=== PATIENT | male | born 1930 | race Caucasian/White ===

== ENCOUNTER 2016-08-18 19:01 | Emergency (ER) | payer OTHER ==
[2016-08-18] VITALS (10 sets, daily range): BP systolic 138–162; BP diastolic 80–99; PULSE 89–97; TEMP 36.9; O2SAT 93–97; Ht 180.3 cm; Wt 128.5 kg
[~2016-08-18] VITALS: Ht 180.3 cm; Wt 128.5 kg
[~2016-08-18 19:01] MED LIST: ASPI81TA28 PO; BENA20TA14 PO; COEN100C11 PO; FLAX100024 PO; IBUP-1050 PO; MULT-190 PO; OMEG10007 PO; RED600TA PO
[2016-08-18] MEDS ORDERED: ONDANSETRON INJ 2 MG/ML 2 ML VIAL IV STA (19:52)
[2016-08-18] MEDS ORDERED: HYDROmorphone INJ 0.5 MG/0.5 ML SYR IV STA (19:52)
[2016-08-18] MEDS ORDERED: SODIUM CHLORIDE 0.9% 500ML 500 ML IV STA (19:52)
[2016-08-18 20:01] LABS: BASO % 0.3 %; BASO ABS # 0.03 K/uL (0-0.2); COMPLETE YES; EOS % 1.9 %; HEMATOCRIT 47.9 % (42-52); IG% 0.3 %; LYMPH % 29.5 %; LYMPH ABS # 2.97 K/uL (1.2-3.4); MEAN CELL VOLUME 91.1 fL (80-100); MEAN PLATELET VOLUME 10.6 fL (7.4-10.4); MONO % 8.8 %; NEUT % 59.2 %; PLATELET COUNT 190 K/uL (130-400); RED BLOOD COUNT 5.26 M/uL (4.7-6.1); WHITE BLOOD COUNT 10.07 K/uL (4.8-10.8)
--- NOTE | 2016-08-18 20:04 | EMERGENCY ROOM VISIT NOTE ---
History Report prepared by Desmond: Malu Block Under the Supervision of: Dr. Richie Dixon M.D. 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 The patient rates the pain as a 9/10 in severity. 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 The patient states he is unable to move his right leg due to the pain. The patient's states that the patient was hospitalized due to pneumonia and sepsis infection 4 months ago. The patient denies any shortness of breath or recent fevers. Source of History: patient, spouse/significant other () Onset: shortly GENERAL COUNSELOR Position: pelvis (right hip) Symptom Intensity: 9/10 Timing: constant Modifying Factors (Worsening): movement Associated Symptoms: No SOB, No fevers Review of Systems See HPI for pertinent positives & negatives. A total of 10 systems reviewed and were otherwise negative. Past Medical & Surgical Medical Problems: (1) Hyperlipidemia Nec/Nos (2) Hypertension (3) Pure Hypercholesterolem Family History Stroke Social History Smoking Status: Never Smoker Marital Status: Housing Status: lives with significant other Current/Historical Medications Scheduled Aspirin (Aspirin Ec), 81 MG PO DAILY Flaxseed (Linseed) (Flax Seed Oil), 1 DOSE PO BID Furosemide (Lasix), 20 MG PO DAILY Metoprolol Tartrate (Lopressor), 50 MG PO BID Ocuvite Preservision (Ocuvite Preservision), 1 TAB PO BID Red Yeast Rice Extract (Red Yeast Rice), 1 DOSE PO BID Rivaroxaban (Xarelto), 15 MG PO QAM Allergies Coded Allergies: No Known Allergies (Verified , 08/18/16) Physical Exam Vital Signs Date Time Temp Pulse Resp B/P Pulse Ox O2 Delivery O2 Flow Rate FiO2 08/18/16 22:35 97 22 151/92 94 08/18/16 22:15 93 20 149/87 92 Room Air 08/18/16 22:10 93 20 138/82 93 Room Air 08/18/16 21:55 95 18 140/82 94 Nasal Cannula 2.0 08/18/16 21:40 96 16 146/84 97 Nasal Cannula 2.0 08/18/16 21:35 94 16 154/85 96 Nasal Cannula 2.0 08/18/16 21:30 95 16 154/95 94 Nasal Cannula 2.0 08/18/16 21:25 94 32 140/80 93 Nasal Cannula 5.0 08/18/16 21:21 96 20 162/99 95 Nasal Cannula 2.0 08/18/16 21:08 89 20 138/91 97 Nasal Cannula 2.0 08/18/16 20:53 87 08/18/16 20:50 88 18 147/89 96 Room Air 08/18/16 20:05 88 18 194/121 96 Room Air 08/18/16 19:10 36.9 91 18 178/102 95 Room Air Physical Exam GENERAL: Patient is a healthy-appearing well-nourished, in obvious distress. HEAD: Normocephalic atraumatic EYES: Ocular movements intact pupils equal and react to light OROPHARYNX mucous membranes are moist no exudates present no erythema or edema present NECK: Supple no nuchal rigidity CHEST: Good equal expansion LUNGS: Clear and equal to auscultation CARDIAC: Normal S1 and S2 ABDOMEN: Soft nontender no guarding BACK: No CVA tenderness EXTREMITIES: No pain upon palpation normal muscle strength in all groups no clubbing cyanosis or edema; Right leg is shortened and externally rotated. NEURO: Patient is following commands is answering questions appropriately. Alert and oriented x3 Cranial Nerves 2-12 grossly intact Medical Decision & Procedures ER Provider Diagnostic Interpretation: X-ray results as stated below per interpretation by me and the radiologist: CHEST ONE VIEW PORTABLE HISTORY: Fall. COMPARISON: Chest 12/29/2014. FINDINGS: The heart remains mildly enlarged. There is diffuse interstitial thickening which is likely chronic. No new focal lung consolidations to suggest pneumonia. No evidence for pulmonary edema. Low lung volumes, unchanged. No pleural effusions. No pneumothorax. IMPRESSION: No significant change compared to the prior study. No acute process. Electronically signed by: José Luis Lynch M.D. 08/18/2016 8:46 PM Dictated Date/Time: 08/18/2016 8:45 PM PELVIS 1 OR 2 VIEW ROUTINE, RIGHT FEMUR 2 VIEWS ROUTINE CLINICAL HISTORY: Fall. Right hip pain. COMPARISON STUDY: Right hip 11/12/2015. 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 No fractures within the pelvis, hips, or right femur. There is posterior/superior dislocation of the right femoral prosthesis in relation to the acetabular cup. Moderate left hip osteoarthritis. IMPRESSION: Posterior/superior dislocation of the right femoral prosthesis in relation to the acetabular cup. No fractures. Electronically signed by: José Luis Lynch M.D. 08/18/2016 8:49 PM Dictated Date/Time: 08/18/2016 8:47 PM PELVIS 1 OR 2 VIEW ROUTINE, RIGHT FEMUR 2 VIEWS ROUTINE CLINICAL HISTORY: Fall. Right hip pain. COMPARISON STUDY: Right hip 11/12/2015. 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 No fractures within the pelvis, hips, or right femur. There is posterior/superior dislocation of the right femoral prosthesis in relation to the acetabular cup. Moderate left hip osteoarthritis. IMPRESSION: Posterior/superior dislocation of the right femoral prosthesis in relation to the acetabular cup. No fractures. Electronically signed by: José Luis Lynch M.D. 08/18/2016 8:49 PM Dictated Date/Time: 08/18/2016 8:47 PM Laboratory Results 08/18/16 19:40 Red Blood Count 5.26, Mean Corpuscular Volume 91.1, Mean Corpuscular Hemoglobin 31.0, Mean Corpuscular Hemoglobin Concent 34.0, Mean Platelet Volume 10.6, Neutrophils (%) (Auto) 59.2, Lymphocytes (%) (Auto) 29.5, Monocytes (%) (Auto) 8.8, Eosinophils (%) (Auto) 1.9, Basophils (%) (Auto) 0.3, Neutrophils # (Auto) 5.96, Lymphocytes # (Auto) 2.97, Monocytes # (Auto) 0.89, Eosinophils # (Auto) 0.19, Basophils # (Auto) 0.03 08/18/16 19:40 Test 08/18/16 19:40 08/18/16 20:48 White Blood Count 10.07 K/uL (4.8-10.8) Red Blood Count 5.26 M/uL (4.7-6.1) Hemoglobin 16.3 g/dL (14.0-18.0) Hematocrit 47.9 % (42-52) Mean Corpuscular Volume 91.1 fL (80-100) Mean Corpuscular Hemoglobin 31.0 pg (25-34) Mean Corpuscular Hemoglobin Concent 34.0 g/dl (32-36) Platelet Count 190 K/uL (130-400) Mean Platelet Volume 10.6 fL (7.4-10.4) Neutrophils (%) (Auto) 59.2 % Lymphocytes (%) (Auto) 29.5 % Monocytes (%) (Auto) 8.8 % Eosinophils (%) (Auto) 1.9 % Basophils (%) (Auto) 0.3 % Neutrophils # (Auto) 5.96 K/uL (1.4-6.5) Lymphocytes # (Auto) 2.97 K/uL (1.2-3.4) Monocytes # (Auto) 0.89 K/uL (0.11-0.59) Eosinophils # (Auto) 0.19 K/uL (0-0.5) Basophils # (Auto) 0.03 K/uL (0-0.2) RDW Standard Deviation 46.6 fL (36.4-46.3) RDW Coefficient of Variation 13.9 % (11.5-14.5) Immature Granulocyte % (Auto) 0.3 % Immature Granulocyte # (Auto) 0.03 K/uL (0.00-0.02) Anion Gap 9.0 mmol/L (3-11) Est Creatinine Clear Calc Drug Dose 50.8 ml/min Estimated GFR () 52.0 Estimated GFR (Non- 44.9 BUN/Creatinine Ratio 13.1 (10-20) Calcium Level 8.8 mg/dl (8.5-10.1) Total Bilirubin 0.4 mg/dl (0.2-1) Direct Bilirubin mg/dl (0-0.2) Aspartate Amino Transf (AST/SGOT) 26 U/L (15-37) Alanine Aminotransferase (ALT/SGPT) 25 U/L (12-78) Alkaline Phosphatase 136 U/L (45-117) Total Protein 7.8 gm/dl (6.4-8.2) Albumin 3.8 gm/dl (3.4-5.0) Lipase 112 U/L (73-393) Chemistry Specimen Hemolysis Urine Color YELLOW Urine Appearance CLEAR (CLEAR) Urine pH 5.0 (4.5-7.5) Urine Specific [place] 1.021 (1.000-1.030) Urine Protein TRACE (NEG) Urine Glucose (UA) NEG (NEG) Urine Ketones NEG (NEG) Urine Occult Blood NEG (NEG) Urine Nitrite NEG (NEG) Urine Bilirubin NEG (NEG) Urine Urobilinogen NEG (NEG) Urine Leukocyte Esterase NEG (NEG) Urine WBC (Auto) 1-5 /hpf (0-5) Urine RBC (Auto) 0-4 /hpf (0-4) Urine Hyaline Casts (Auto) 1-5 /lpf (0-5) Urine Epithelial Cells (Auto) 10-20 /lpf (0-5) Urine Bacteria (Auto) NEG (NEG) Labs reviewed by ED physician. Medications Administered Medications (Trade) Dose Ordered Sig/Ml Route Start Time Stop Time Status Last Admin Dose Admin Hydromorphone HCl (Dilaudid Inj) 0.5 mg NOW STAT IV 08/18/16 19:52 08/18/16 19:54 DC 08/18/16 20:04 0.5 MG Ondansetron HCl 4 mg 4 mg NOW STAT IV 08/18/16 19:52 08/18/16 19:54 DC 08/18/16 20:04 4 MG Sodium Chloride (Nss 500ml) 500 ml @ 999 mls/hr Q31M STAT IV 08/18/16 19:52 08/18/16 20:22 DC 08/18/16 20:03 999 MLS/HR Metoclopramide HCl (Reglan Inj) 10 mg NOW STAT IV 08/18/16 20:54 08/18/16 20:56 DC 08/18/16 21:04 10 MG Procedure Procedural Sedation Indication Hip Dislocation. Total time: 20 minutes minutes. Written consent was obtained after the risks and benefits were explained to the patient, including, but not limited to aspiration, allergic reaction, breathing difficulties, cardiac complications, vomiting, pain, event recall, bleeding, and /or infection. Pre-sedation examination and paperwork completed. The patient was on 100% oxygen via NRB prior to the procedure. Continous end tidal CO2 monitoring, pulse oximetry, and cardiac monitoring were utilized. Suction, airway equipment, medications, respiratory equipment, and appropriate personnel were prepared prior to the initiation of the procedure. A time out was taken. Sedation was achieved utilizing 70 mg of propofol. After I observed the patient had reached the appropriate level of sedation the main procedure was performed without complication. Sedation was discontinued and the monitoring continued. The patient recovered quickly from the effects of the medication without complication or adverse event. ED Course 1945: Past medical records reviewed. The patient was evaluated in room C4. A complete history and physical examination was performed. 1951: Ordered Sodium Chloride 500 ml @ 999 mls/hr IV, Zofran Inj 4 mg IV, Dilaudid Inj 0.5 mg IV. 2049: I discussed the case with Dr. Shaw Orthopedic Surgery. He agreed to come evaluate the patient and reduce the hip dislocation. 2053: Ordered Reglan Inj 10 mg IV, Propofol 60 mg IV, Ketamine HCl 60 mg IV. 2129: Upon reexamination the patient is resting comfortably. I discussed results and treatment plan with the patient. He verbalizes agreement and understanding. The patient is ready for discharge. Medical Decision Differential diagnosis: Etiologies such as fracture, dislocation, neurovascular compromise, compartment syndrome, soft tissue injury, as well as others were entertained. This is an 86-year-old male who presents emergency department complaining of right hip dislocation. The patient's is also concerned that he is had pneumonia in the past. I will note that the patient does not have any complaint of weakness chest pain cough or congestion. Chest x-ray does not show any evidence of pneumonia. His hip x-ray is concerning for a right hip dislocation. The patient's is requesting to speak with [facility] therefore . education administrative assistant Dr. Shaw came in to see the . The patient was sedated as above. He received 0.5 mg of Dilaudid in the emergency department. The hip was successfully reduced by Dr. Shaw. Repeat examination revealed much improvement patient's symptoms. I do believe that the patient is well enough to be discharged home for follow-up with [facility]. Patient was in agreement with the treatment plan. Consults Time Called: 2044 Consulting Physician: Dr. [facility] Surgery Returned Call: 2049 I discussed the case with Dr. Shaw Orthopedic Surgery. He agreed to come evaluate the patient and reduce the hip dislocation. Impression Primary Impression: Dislocation of internal right hip prosthesis Scribe Attestation The scribe's documentation has been prepared under my direction and personally reviewed by me in its entirety. I confirm that the note above accurately reflects all work, treatment, procedures, and medical decision making performed by me. Departure Information Dispostion Home / Self-Care Referrals Helio Molina M.D. (PCP) Forms HOME CARE DOCUMENTATION FORM, IMPORTANT VISIT INFORMATION, WORK / SCHOOL INSTRUCTIONS Patient Instructions My [facility] Additional Instructions Follow up with DR Pike's office You have been examined and treated today on an emergency basis only. This is not a substitute for, or an effort to provide, complete comprehensive medical care. It is impossible to recognize and treat all injuries or illnesses in a single emergency department visit. It is therefore important that you follow up closely with Dr Molina. Call as soon as possible for an appointment. Thank you for your time and consideration. I look forward to speaking with you again soon. Please don't hesitate to call us if you have any questions. Problem Qualifiers Primary Impression: Dislocation of internal right hip prosthesis Encounter type: initial encounter Qualified Codes: T84.020A - Dislocation of internal right hip prosthesis, initial encounter
[2016-08-18] MEDS ORDERED: FLAX1CAP11 PO (20:20)
[2016-08-18] MEDS ORDERED: ASPI81TA28 PO (20:20)
[2016-08-18] MEDS ORDERED: XRL15 PO (20:20)
[2016-08-18] MEDS ORDERED: MULT-190 PO (20:20)
[2016-08-18] MEDS ORDERED: METO-551 PO (20:20)
[2016-08-18] MEDS ORDERED: FURO-85 PO (20:20)
[2016-08-18] MEDS ORDERED: RED600TA PO (20:20)
--- NOTE | 2016-08-18 20:48 | DIAGNOSTIC IMAGING REPORT ---
CHEST ONE VIEW PORTABLE HISTORY: Fall. COMPARISON: Chest 12/29/2014. FINDINGS: The heart remains mildly enlarged. There is diffuse interstitial thickening which is likely chronic. No new focal lung consolidations to suggest pneumonia. No evidence for pulmonary edema. Low lung volumes, unchanged. No pleural effusions. No pneumothorax. IMPRESSION: No significant change compared to the prior study. No acute process. Electronically signed by: José Luis Lynch M.D. 08/18/2016 8:46 PM Dictated Date/Time: 08/18/2016 8:45 PM
[2016-08-18 20:50] LABS: ALKALINE PHOSPHATASE 136 U/L (45-117); ALT/SGPT 25 U/L (12-78); AST/SGOT 26 U/L (15-37); BLOOD UREA NITROGEN 18 mg/dl (7-18); BUN/CREATININE RATIO 13.1 (10-20); CALCIUM 8.8 mg/dl (8.5-10.1); CARBON DIOXIDE 30 mmol/L (21-32); CHLORIDE 105 mmol/L (98-107); GLUCOSE 110 mg/dl (70-99); POTASSIUM 3.9 mmol/L (3.5-5.1); SODIUM 144 mmol/L (136-145)
--- NOTE | 2016-08-18 20:52 | DIAGNOSTIC IMAGING REPORT ---
PELVIS 1 OR 2 VIEW ROUTINE, RIGHT FEMUR 2 VIEWS ROUTINE CLINICAL HISTORY: Fall. Right hip pain. COMPARISON STUDY: Right hip 11/12/2015. 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 No fractures within the pelvis, hips, or right femur. There is posterior/superior dislocation of the right femoral prosthesis in relation to the acetabular cup. Moderate left hip osteoarthritis. IMPRESSION: Posterior/superior dislocation of the right femoral prosthesis in relation to the acetabular cup. No fractures. Electronically signed by: José Luis Lynch M.D. 08/18/2016 8:49 PM Dictated Date/Time: 08/18/2016 8:47 PM
[2016-08-18] MEDS ORDERED: KETAMINE HCL INJ 50 MG/ML 10 ML VIAL IV STA (20:54)
[2016-08-18] MEDS ORDERED: METOCLOPRAMIDE HCL INJ 5 MG/ML 2 ML VIAL IV STA (20:54)
[2016-08-18] MEDS ORDERED: PROPOFOL IV EMULSION 10 MG/ML 20 ML VIAL IV STA (20:54)
[2016-08-18 21:15] LABS: URINE APPEARANCE CLEAR (CLEAR); URINE BILIRUBIN NEG (NEG); URINE COLOR YELLOW; URINE NITRITE NEG (NEG); URINE SPECIFIC GRAVITY 1.021 (1.000-1.030); UROBILINOGEN NEG (NEG)
[2016-08-18 21:16] LABS: MANUAL MICROSCOPIC REQUIRED? NO; REVIEW REQ? NO
--- NOTE | 2016-08-18 21:40 | EMERGENCY ROOM VISIT NOTE ---
Pre-Mod Sedation Assessment General Date of Moderate Sedation: Aug 18, 2016. Vital Signs: Vital Signs Past 12 Hours Date Time Temp Pulse Resp B/P Pulse Ox O2 Delivery O2 Flow Rate FiO2 08/18/16 21:21 96 20 162/99 95 Nasal Cannula 2.0 08/18/16 21:08 89 20 138/91 97 Nasal Cannula 2.0 08/18/16 20:53 87 08/18/16 20:50 88 18 147/89 96 Room Air 08/18/16 20:05 88 18 194/121 96 Room Air 08/18/16 19:10 36.9 91 18 178/102 95 Room Air Review Cardiovascular: regular rate, rhythm, no edema, no gallop, no JVD, no murmur, normal peripheral pulses Abdomen: normal bowel sounds, non tender, soft, no organomegaly, no pulsatile mass, normal rectal exam, occult blood negative Lungs: chest non-tender, lungs clear, normal breath sounds, no respiratory distress, no accessory muscle use Airway Class: II Pre-Sedation Airway Assessment Oral Cavity: Dental Abnormalities Short Thick Neck: Yes Hx of Sleep Apnea: No Smoking Status: Never Smoker Mallampati Classification: Class III ASA Classification: Class III Procedure Planning Contraindications-for Mod Sed: None Yes Notes The planned sedation has been discussed with the patient and consent obtained. I have identified the patient, determined the appropriateness of sedation and have assessed the patient immediately prior to the procedure. All medicine(s) and interventions are by my order.
--- NOTE | 2016-08-18 21:41 | EMERGENCY ROOM VISIT NOTE ---
Post-Moderate Sedation Plan General Date of Moderate Sedation Aug 18, 2016. Vital Signs: Vital Signs Past 12 Hours Date Time Temp Pulse Resp B/P Pulse Ox O2 Delivery O2 Flow Rate FiO2 08/18/16 21:21 96 20 162/99 95 Nasal Cannula 2.0 08/18/16 21:08 89 20 138/91 97 Nasal Cannula 2.0 08/18/16 20:53 87 08/18/16 20:50 88 18 147/89 96 Room Air 08/18/16 20:05 88 18 194/121 96 Room Air 08/18/16 19:10 36.9 91 18 178/102 95 Room Air Review - Discharge Plan Post Moderate Sedation Plan: On clinical assessment, the patient appears to have tolerated the conscious sedation without complications. Patient is recovering as anticipated. Patient will continue to be monitored by nursing and may be discharged when conscious sedation discharge criteria are met.
--- NOTE | 2016-08-18 21:50 | DIAGNOSTIC IMAGING REPORT ---
PELVIS/UNILATERAL HIP 1 VIEW CLINICAL HISTORY: Pt c/o RT hip pain. Dislocation. Status post reduction. COMPARISON STUDY: Right femur 08/18/2016. FINDINGS: Anatomic alignment status post closed reduction of the right hip prosthesis. No acute fractures identified. Moderate left hip osteoarthritis. 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 IMPRESSION: Anatomic alignment status post reduction of the right hip prosthesis dislocation. Electronically signed by: José Luis Lynch M.D. 08/18/2016 9:47 PM Dictated Date/Time: 08/18/2016 9:46 PM
--- NOTE | 2016-08-19 01:46 | ORTHOPEDIC CONSULTATION ---
DATE OF CONSULTATION: 08/18/2016 EMERGENCY DEPARTMENT CONSULTATION Special attention to right hip dislocation. HISTORY OF PRESENT ILLNESS: This is an 86-year-old male who is status post right total hip, initially done in the [place] area. Subsequently, he had revision hip replacement by Dr. Pike. He has had 2 subsequent dislocations in the past few years to the right hip. He presents with dislocation of the right hip. He states this began as he was bending over, picking something up off the floor. He complains of pain in the right hip region. He denies any other complaints, injury or numbness. PHYSICAL EXAMINATION: RIGHT HIP: Exam shows shortened and externally rotated hip. He has pain with logroll of the hip. His calf and thigh compartments are soft. He can flex and extend the ankle and the digits, but further musculoskeletal exam is limited secondary to discomfort. RADIOGRAPHS: AP pelvis does show posterior superior dislocation of the hip. I do not see evidence of acute fracture. ASSESSMENT: An 86-year-old male, with right hip dislocation, third dislocation. PLAN: I discussed treatment with the patient and family. The recommendations were closed reduction in the Emergency Department followed by a followup with Dr. Pike. The patient's family is anxious to discuss revision surgery as this has been his third dislocation. PROCEDURE: The patient was given conscious sedation by the department of emergency medicine. I performed a gentle closed reduction maneuver, the hip did go into place easily without significant difficulty. Leg lengths were equal after the procedure. Post-reduction radiographs confirmed a concentric reduction. The patient was placed in a knee immobilizer and instructed to follow up in the office.
== END 2016-08-18 22:36 | disposition home or self-care (01) ==
LOC: EDBD 19:01 → C.EDC 19:03
DX: T84.020A Dislocation of internal right hip prosthesis, initial encounter (principal); Y83.1 Surgical operation with implant of artificial internal device as the cause of abnormal reaction of the patient, or of later complication, without mention of misadventure at the time of the procedure; Z87.01 Personal history of pneumonia (recurrent); E78.5 Hyperlipidemia, unspecified; I10 Essential (primary) hypertension; E78.00 Pure hypercholesterolemia, unspecified; Z82.3 Family history of stroke; Z79.82 Long term (current) use of aspirin; Z79.899 Other long term (current) drug therapy; Z79.01 Long term (current) use of anticoagulants

== ENCOUNTER 2017-12-29 10:40 | Inpatient (IN) | payer OTHER ==
[~2017-12-29] VITALS: Ht 180.3 cm; Wt 101.5 kg
[~2017-12-29 10:40] MED LIST changes: -BENA20TA14 PO; -COEN100C11 PO; -FLAX100024 PO; +FLAX1CAP11 PO; +FURO-85 PO; -IBUP-1050 PO; +METO-551 PO; -OMEG10007 PO; +XRL15 PO
[2017-12-29] MEDS ORDERED: SODIUM CHLORIDE 0.9% 1000ML 500 ML IV STA (11:15)
[2017-12-29] MEDS ORDERED: MISCCAP80 PO (11:27)
[2017-12-29] MEDS ORDERED: XRL20 PO (11:27)
[2017-12-29] MEDS ORDERED: ZLF/50 PO (11:27)
[2017-12-29] MEDS ORDERED: SENN-65 PO (11:27)
[2017-12-29] MEDS ORDERED: PLV75 PO (11:27)
[2017-12-29] MEDS ORDERED: DOCU-94 PO (11:28)
[2017-12-29] MEDS ORDERED: ROSU20TA24 PO (11:28)
[2017-12-29] MEDS ORDERED: METO50TA16 PO (11:28)
[2017-12-29] MEDS ORDERED: PANT40TA PO (11:28)
[2017-12-29] MEDS ORDERED: OMEG10007 PO (11:28)
[2017-12-29] MEDS ORDERED: NTRGSL/4 UT (11:28)
[2017-12-29] MEDS ORDERED: LSX20 PO (11:28)
[2017-12-29] MEDS ORDERED: POLY335019 PO (11:28)
[2017-12-29] MEDS ORDERED: OPTIRAY 320 IV PRN (11:30)
--- NOTE | 2017-12-29 11:37 | DIAGNOSTIC IMAGING REPORT ---
CHEST ONE VIEW PORTABLE HISTORY: 87 years-old Male ABDOMINAL PAIN/GI acute generalized abdominal pain COMPARISON: Chest radiograph 08/18/2016 TECHNIQUE: Portable AP view of the chest FINDINGS: Patient is slightly rotated to the right. Cardiac silhouette is enlarged, unchanged. Calcification and tortuosity of the aorta. No pneumothorax, pleural effusion or overt pulmonary edema. Lungs are mildly hypoinflated. Mild sigmoidal scoliosis of the spine. Changes of the shoulders and spine are noted. IMPRESSION: Cardiomegaly without acute process. The above report was generated using voice recognition software. It may contain grammatical, syntax or spelling errors. Electronically signed by: Camilo Blanco M.D. 12/29/2017 11:35 AM Dictated Date/Time: 12/29/2017 11:34 AM
[2017-12-29 12:01] LABS: BASO % 0.2 %; BASO ABS # 0.02 K/uL (0-0.2); EOS % 1.7 %; EOS ABS # 0.16 K/uL (0-0.5); HEMATOCRIT 37.4 % (42-52); IG# 0.03 K/uL (0.00-0.02); LYMPH ABS # 1.78 K/uL (1.2-3.4); MEAN CELL VOLUME 84.8 fL (80-100); MEAN CORPUSCULAR HEMOGLOBIN 27.2 pg (25-34); MEAN CORPUSCULAR HGB CONC 32.1 g/dl (32-36); MEAN PLATELET VOLUME 9.6 fL (7.4-10.4); MONO ABS # 0.84 K/uL (0.11-0.59); NEUT % 69.8 %; NEUT ABS # 6.52 K/uL (1.4-6.5); PLATELET COUNT 241 K/uL (130-400); RED CELL DISTRIBUTION WIDTH CV 17.8 % (11.5-14.5); RED CELL DISTRIBUTION WIDTH SD 55.1 fL (36.4-46.3); WHITE BLOOD COUNT 9.35 K/uL (4.8-10.8)
[2017-12-29 12:14] LABS: INR 1.3 (0.9-1.1); PTT PATIENT 36.2 SECONDS (21.0-31.0)
[2017-12-29 12:22] LABS: ALBUMIN 2.4 gm/dl (3.4-5.0); CALCIUM 8.8 mg/dl (8.5-10.1); CREATININE 1.05 mg/dl (0.60-1.40); POTASSIUM 3.3 mmol/L (3.5-5.1); TOTAL PROTEIN 7.6 gm/dl (6.4-8.2)
--- NOTE | 2017-12-29 14:29 | DIAGNOSTIC IMAGING REPORT ---
CT SCAN OF THE ABDOMEN AND PELVIS WITH IV CONTRAST CLINICAL HISTORY: Generalized abdominal pain. COMPARISON STUDY: No priors. TECHNIQUE: Following the IV administration of 116 cc of Optiray 320, CT scan of the abdomen and pelvis is performed from the lung bases to the proximal femora. Images are reviewed in the axial, sagittal, and coronal planes. IV contrast was administered without complication. A dose lowering technique was utilized adhering to the principles of ALARA. The examination is degraded by motion artifact, as well as by streak artifact from the arms which could not be elevated above the abdomen. CT DOSE: 1804.01 mGy.cm FINDINGS: Lung bases: The heart is normal in size and without pericardial effusion. The coronary arteries and aortic valve leaflets are densely calcified. There is bibasilar scarring/atelectasis. No airspace consolidation or pleural effusion is identified a 4 mm left lower lobe nodule is seen on image #46. Liver: The contrast-enhanced liver is normal in size, contour, and attenuation. There is no intrahepatic biliary ductal dilatation. The hepatic veins and portal veins are patent. A 14 mm cyst is noted in the left hepatic lobe. Gallbladder: A cholecystectomy ostomy tube is in place from a right anterior abdominal approach. This is coiled within the gallbladder lumen. There are numerous layering gallstones identified. The gallbladder wall appears mildly thickened and hyperemic. There is only faint pericholecystic stranding. There is a a large defect within the mucosa of the gallbladder fundus seen on image #159, with a peripherally enhancing fluid collection identified between the gallbladder fundus and the abdominal wall. This is best seen on image #162, and the collection measures approximately 6 x 6.5 x 1.5 cm. Spleen: Normal in size and attenuation. Pancreas: Atrophic and grossly unremarkable. Adrenal glands: Unremarkable. Kidneys: The contrast enhanced kidneys are atrophic and without hydronephrosis. The kidneys enhance symmetrically. A 2.4 cm exophytic lesion arising from the interpolar left kidney measures greater than water density and likely represents a complex cyst. A subcentimeter cortical hypodensity in the right kidney also likely represents a cyst but is too small for definitive characterization. Abdominal vasculature: The abdominal aorta is normal in course and caliber noting moderate to advanced atherosclerotic calcification. Bowel: There is rectosigmoid fecal impaction. Mild to moderate constipation is observed. No bowel obstruction is seen. There is mild colonic diverticulosis without CT evidence of acute diverticulitis. The appendix is not visualized. Peritoneum: There is no intraperitoneal free air or abdominal ascites. Lymphadenopathy: None. Pelvic viscera: Evaluation of the pelvis is degraded by streak artifact from a right hip arthroplasty. The prostate gland is enlarged and heterogeneous, measuring 6.2 cm in transverse diameter. There is median lobe hypertrophy. The bladder is distended. The bladder wall is mildly thickened and trabeculated indicating chronic outlet obstruction. Small bladder diverticula are noted. There is calcification of the penile tunica suggesting Peyronie's disease. An indeterminant structure is present in the right pelvis superficial to the iliac wing seen on image #355. There is diffuse atrophy of the pelvic musculature. Skeletal structures: The skeletal structures are osteopenic. There is moderate to advanced lumbosacral spondylosis. There is a mild compression deformity of L5. There is marked heterogeneity seen throughout the sacrum and the body of L5, as well as involving the left bony pelvis. No lytic or blastic lesions are seen. A right hip arthroplasty is in place. There are healed left anterior rib fractures. IMPRESSION: 1. Streak and motion degraded examination. 2. A percutaneous cholecystostomy tube is in place. This enters the gallbladder from an anterior/inferior approach, and is coiled within the gallbladder lumen. 3. There are layering stones within the gallbladder. The gallbladder wall is mildly thickened and hyperemic. The gallbladder is not distended and only faint pericholecystic stranding is identified. 4. There is a large defect in the gallbladder fundus, with a peripherally enhancing fluid collection seen between the gallbladder fundus and the anterolateral abdominal wall. This collection measures approximately 6 x 6.5 x 1.5 cm and likely represents a biloma/abscess. 5. There is rectosigmoid fecal impaction. 6. There is significant heterogeneity seen throughout the sacrum, the body of L5, and the left bony pelvis. Dimension considerations include Paget's disease of bone, post radiation change, or much less likely metastatic disease. Correlation with clinical findings and any prior outside imaging studies will be required. 7. Additional findings as above. Electronically signed by: Wil Greenfield M.D. 12/29/2017 2:28 PM Dictated Date/Time: 12/29/2017 2:04 PM
[2017-12-29] MEDS ORDERED: SODIUM CHLORIDE 0.9% 500ML 500 ML IV STA (15:09)
[2017-12-29] MEDS ORDERED: PIPERACILLIN/TAZOBACTAM 4.5 GM/100ML D5W IV STA (15:09)
--- NOTE | 2017-12-29 16:22 | Surgery Consultation ---
Consultation Date of Consultation: Dec 29, 2017. Attending Physician: History of Present Illness 87 y/o male with cardiac risk/stent was transferred from [facility] for a perc riri tube for acute cholecystitis. He was supposed to be seen there again for a tube check and possibly exchange. They missed that appointment as they were unable to move him. He and his both have some dementia and history is primarily from the ER physician and son via phone. he has not been febrile. denies abdominal pain or nausea. has been eating normally. is essentially bed ridden per son. CT shows a ? perforated gallbladder with abcess vs biloma. wbc normal. Family History Stroke Social History Smoking Status: Never Smoker Marital Status: Housing Status: lives with significant other Allergies Coded Allergies: No Known Allergies (Verified , 12/29/17) Home Medications Scheduled Clopidogrel Bisulfate (Clopidogrel), 75 MG PO DAILY Docusate Sodium (Colace), 1 CAP PO BID Fish Oil ([place]-3), 1 CAP PO DAILY Furosemide (Furosemide), 40 MG PO DAILY Metoprolol Tartrate (Lopressor) (Lopressor), 50 MG PO Q12 Nitroglycerin (Nitrostat), 0.4 MG UT PRN Pantoprazole (Protonix), 40 MG PO DAILY Polyethylene Glycol 3350 (Miralax), 17 GM PO DAILY Probiotic Product (Probiotic), 1 CAP PO BID Rivaroxaban (Xarelto), 20 MG PO QPM Rosuvastatin Calcium (Rosuvastatin Calcium), 80 MG PO DAILY Sertraline HCl (Sertraline HCl), 50 MG PO DAILY Scheduled PRN Senna/Docusate Sod (Senokot S), 1 TAB PO DAILY PRN for Constipation Current Inpatient Medications Current Inpatient Medications Medications (Trade) Dose Ordered Sig/Ml Route Start Time Stop Time Status Last Admin Dose Admin Ioversol (Optiray 320) 111 ml UD PRN IV 12/29/17 11:30 01/02/18 11:29 Review of Systems Abdomen: + problem reported (see hpi) Neurologic: + memory loss Physical Exam Date Time Temp Pulse Resp B/P (MAP) Pulse Ox O2 Delivery O2 Flow Rate FiO2 12/29/17 14:45 64 18 92/59 95 Room Air 12/29/17 12:32 60 18 114/61 96 Room Air 12/29/17 10:45 36.9 64 18 107/62 94 Room Air General Appearance: no apparent distress, + pertinent finding (alert but confused to details) Head: normocephalic, atraumatic Eyes: EOMI, sclerae normal Neck: supple, trachea midline Respiratory/Chest: no respiratory distress, no accessory muscle use Abdomen/GI: non tender, soft, + pertinent finding (perc rrii tube in place. some purulent drainage around it. minimal bile in bag) Neurologic/Psych: alert, + disoriented Skin: normal color Laboratory Results Last 24 Hours Test 12/29/17 11:50 12/29/17 14:35 White Blood Count 9.35 K/uL Red Blood Count 4.41 M/uL Hemoglobin 12.0 g/dL Hematocrit 37.4 % Mean Corpuscular Volume 84.8 fL Mean Corpuscular Hemoglobin 27.2 pg Mean Corpuscular Hemoglobin Concent 32.1 g/dl Platelet Count 241 K/uL Mean Platelet Volume 9.6 fL Neutrophils (%) (Auto) 69.8 % Lymphocytes (%) (Auto) 19.0 % Monocytes (%) (Auto) 9.0 % Eosinophils (%) (Auto) 1.7 % Basophils (%) (Auto) 0.2 % Neutrophils # (Auto) 6.52 K/uL Lymphocytes # (Auto) 1.78 K/uL Monocytes # (Auto) 0.84 K/uL Eosinophils # (Auto) 0.16 K/uL Basophils # (Auto) 0.02 K/uL RDW Standard Deviation 55.1 fL RDW Coefficient of Variation 17.8 % Immature Granulocyte % (Auto) 0.3 % Immature Granulocyte # (Auto) 0.03 K/uL Prothrombin Time 13.7 SECONDS Prothromb Time International Ratio 1.3 Activated Partial Thromboplast Time 36.2 SECONDS Partial Thromboplastin Ratio 1.4 Sodium Level 140 mmol/L Potassium Level 3.3 mmol/L Chloride Level 96 mmol/L Carbon Dioxide Level 35 mmol/L Anion Gap 9.0 mmol/L Blood Urea Nitrogen 14 mg/dl Creatinine 1.05 mg/dl Est Creatinine Clear Calc Drug Dose 59.1 ml/min Estimated GFR () 73.1 Estimated GFR (Non- 63.1 BUN/Creatinine Ratio 13.2 Random Glucose 104 mg/dl Calcium Level 8.8 mg/dl Magnesium Level 2.0 mg/dl Total Bilirubin 1.0 mg/dl Aspartate Amino Transf (AST/SGOT) 25 U/L Alanine Aminotransferase (ALT/SGPT) 20 U/L Alkaline Phosphatase 114 U/L Troponin I 0.036 ng/ml Total Protein 7.6 gm/dl Albumin 2.4 gm/dl Globulin 5.2 gm/dl Albumin/Globulin Ratio 0.5 Lipase 105 U/L Urine Color YELLOW Urine Appearance CLEAR Urine pH 6.5 Urine Specific Palmer 1.019 Urine Protein NEG Urine Glucose (UA) NEG Urine Ketones NEG Urine Occult Blood NEG Urine Nitrite NEG Urine Bilirubin NEG Urine Urobilinogen NEG Urine Leukocyte Esterase NEG Assessment & Plan pt with recent perc riri tube for cholecystitis suspect tube clogged or kinked however it appears to be acting as a drain for the RUQ abcess pt is not a surgical candidate and I do not recommend surgery needs to have a tube check/flush/replaced and possibly a second percutaneous drain placed clinically stable he is non-ambulatory therefore I would rec keeping the riri tube for life discussed with ER. rec possibly admitting patient to help facilitate transfer to a tertiary center where IR can do the tube checks/placements will also need decub/skin breakdown help. please call if we can assist in any way.
[2017-12-29] MEDS ORDERED: ACETAMINOPHEN 325 MG TAB PO PRN (17:00)
[2017-12-29] MEDS ORDERED: ONDANSETRON INJ 2 MG/ML 2 ML VIAL IV PRN (17:00)
[2017-12-29] MEDS ORDERED: POLYETHYLENE (MIRALAX) 17 GM PACK PO PRN (17:00)
[2017-12-29] MEDS ORDERED: NITROGLYCERIN 0.4 MG SL PER TAB CHARGE SL PRN (17:00)
[2017-12-29] MEDS ORDERED: PIPERACILL/TAZOBAC CONSULT ACTIVE PRN (17:45)
[2017-12-29] MEDS ORDERED: POTASSIUM CHLORIDE 10 MEQ TABCR PO STA (18:04)
--- NOTE | 2017-12-29 18:12 | EMERGENCY ROOM VISIT NOTE ---
History Report prepared by Desmond: Ravi Dias Under the Supervision of: Dr. Wil Caldwell M.D. First contact with patient: 11:09 Chief Complaint: OTHER COMPLAINT Stated Complaint: EVAL, REFERRED BY History of Present Illness The patient is a 87 year old male who presents to the Emergency Room with complaints of constant weakness. The patient's son reports that the patient had a drain placed for his gallbladder in [place] around the beginning of October. He states that they were originally going to remove the patient's gallbladder, but did not because the patient had 3 cardiac stents placed in September and was taking Xarelto. He states that the patient's current drain is the only one that has been placed. He reports that the patient has been home for about 2 weeks and has had minimal discharge from the drain. He states that a home health nurse regularly sees the patient. He reports that the patient has been very weak , requiring a Clarissa lift to get out of bed and being unable to walk. He states that the patient was supposed to go to [place] for an appointment, but was unable to make it due to his weakness. He states that they tried to make another appointment for the patient, but decided to report to the ER. He notes that the patient arrived via ambulance. The family member also states that the patient has bed sores. The patient denies nausea or pain. Source of History: patient, family (son) Onset: drain placed in beginning of October Position: other (global) Quality: other (weakness) Timing: constant Associated Symptoms: No nausea Note: unable to walk due to weakness and needs a Clarissa lift to get out of bed Review of Systems See HPI for pertinent positives & negatives. A total of 10 systems reviewed and were otherwise negative. Past Medical & Surgical Medical Problems: (1) Hyperlipidemia Nec/Nos (2) Hypertension (3) Pure Hypercholesterolem (4) Weakness Family History Stroke Social History Smoking Status: Never Smoker Marital Status: Housing Status: lives with significant other Current/Historical Medications Scheduled Clopidogrel Bisulfate (Clopidogrel), 75 MG PO DAILY Docusate Sodium (Colace), 1 CAP PO BID Fish Oil (Shelly-3), 1 CAP PO DAILY Furosemide (Furosemide), 40 MG PO DAILY Metoprolol Tartrate (Lopressor) (Lopressor), 50 MG PO Q12 Nitroglycerin (Nitrostat), 0.4 MG UT PRN Pantoprazole (Protonix), 40 MG PO DAILY Rivaroxaban (Xarelto), 20 MG PO QPM Rosuvastatin Calcium (Rosuvastatin Calcium), 20 MG PO DAILY Sertraline HCl (Sertraline HCl), 50 MG PO DAILY Scheduled PRN Polyethylene Glycol 3350 (Miralax), 17 GM PO DAILY PRN for Constipation Senna/Docusate Sod (Senokot S), 1 TAB PO DAILY PRN for Constipation Allergies Coded Allergies: No Known Allergies (Verified , 12/29/17) Physical Exam Vital Signs Date Time Temp Pulse Resp B/P (MAP) Pulse Ox O2 Delivery O2 Flow Rate FiO2 12/29/17 17:00 70 18 119/80 93 Room Air 12/29/17 14:45 64 18 92/59 95 Room Air 12/29/17 12:32 60 18 114/61 96 Room Air 12/29/17 10:45 36.9 64 18 107/62 94 Room Air Physical Exam GENERAL: Patient is in no acute distress. HEENT: No acute trauma, normocephalic atraumatic, mucous membranes moist, no nasal congestion, no scleral icterus. NECK: No stridor, no adenopathy, no meningismus, trachea is midline. LUNGS: Clear to auscultation bilaterally, no wheeze, no rhonchi, breath sounds equal. HEART: Without murmurs gallops or rubs, regular rate and rhythm. ABDOMEN: Soft, nontender, bowel sounds positive, no hernias, no peritonitis. There is a drain in the right upper quadrant with a bates milky discharge in the bag and at the insertion site on the dressing. EXTREMITIES: No cyanosis, full range of motion of all the joints without pain or difficulty, no signs for acute trauma. NEUROLOGIC: Oriented x 3, no acute motor or sensory deficits, no focal weakness. SKIN: No rash, no jaundice, no diaphoresis. Medical Decision & Procedures ER Provider Diagnostic Interpretation: Radiology results as stated below per my review and radiologist interpretation: CT SCAN OF THE ABDOMEN AND PELVIS WITH IV CONTRAST CLINICAL HISTORY: Generalized abdominal pain. COMPARISON STUDY: No priors. TECHNIQUE: Following the IV administration of 116 cc of Optiray 320, CT scan of the abdomen and pelvis is performed from the lung bases to the proximal femora. Images are reviewed in the axial, sagittal, and coronal planes. IV contrast was administered without complication. A dose lowering technique was utilized adhering to the principles of ALARA. The examination is degraded by motion artifact, as well as by streak artifact from the arms which could not be elevated above the abdomen. CT DOSE: 1804.01 mGy.cm FINDINGS: Lung bases: The heart is normal in size and without pericardial effusion. The coronary arteries and aortic valve leaflets are densely calcified. There is bibasilar scarring/atelectasis. No airspace consolidation or pleural effusion is identified a 4 mm left lower lobe nodule is seen on image #46. Liver: The contrast-enhanced liver is normal in size, contour, and attenuation. There is no intrahepatic biliary ductal dilatation. The hepatic veins and portal veins are patent. A 14 mm cyst is noted in the left hepatic lobe. Gallbladder: A cholecystectomy ostomy tube is in place from a right anterior abdominal approach. This is coiled within the gallbladder lumen. There are numerous layering gallstones identified. The gallbladder wall appears mildly thickened and hyperemic. There is only faint pericholecystic stranding. There is a a large defect within the mucosa of the gallbladder fundus seen on image #159, with a peripherally enhancing fluid collection identified between the gallbladder fundus and the abdominal wall. This is best seen on image #162, and the collection measures approximately 6 x 6.5 x 1.5 cm. Spleen: Normal in size and attenuation. Pancreas: Atrophic and grossly unremarkable. Adrenal glands: Unremarkable. Kidneys: The contrast enhanced kidneys are atrophic and without hydronephrosis. The kidneys enhance symmetrically. A 2.4 cm exophytic lesion arising from the interpolar left kidney measures greater than water density and likely represents a complex cyst. A subcentimeter cortical hypodensity in the right kidney also likely represents a cyst but is too small for definitive characterization. Abdominal vasculature: The abdominal aorta is normal in course and caliber noting moderate to advanced atherosclerotic calcification. Bowel: There is rectosigmoid fecal impaction. Mild to moderate constipation is observed. No bowel obstruction is seen. There is mild colonic diverticulosis without CT evidence of acute diverticulitis. The appendix is not visualized. Peritoneum: There is no intraperitoneal free air or abdominal ascites. Lymphadenopathy: None. Pelvic viscera: Evaluation of the pelvis is degraded by streak artifact from a right hip arthroplasty. The prostate gland is enlarged and heterogeneous, measuring 6.2 cm in transverse diameter. There is median lobe hypertrophy. The bladder is distended. The bladder wall is mildly thickened and trabeculated indicating chronic outlet obstruction. Small bladder diverticula are noted. There is calcification of the penile tunica suggesting Peyronie's disease. An indeterminant structure is present in the right pelvis superficial to the iliac wing seen on image #355. There is diffuse atrophy of the pelvic musculature. Skeletal structures: The skeletal structures are osteopenic. There is moderate to advanced lumbosacral spondylosis. There is a mild compression deformity of L5. There is marked heterogeneity seen throughout the sacrum and the body of L5, as well as involving the left bony pelvis. No lytic or blastic lesions are seen. A right hip arthroplasty is in place. There are healed left anterior rib fractures. IMPRESSION: 1. Streak and motion degraded examination. 2. A percutaneous cholecystostomy tube is in place. This enters the gallbladder from an anterior/inferior approach, and is coiled within the gallbladder lumen. 3. There are layering stones within the gallbladder. The gallbladder wall is mildly thickened and hyperemic. The gallbladder is not distended and only faint pericholecystic stranding is identified. 4. There is a large defect in the gallbladder fundus, with a peripherally enhancing fluid collection seen between the gallbladder fundus and the anterolateral abdominal wall. This collection measures approximately 6 x 6.5 x 1.5 cm and likely represents a biloma/abscess. 5. There is rectosigmoid fecal impaction. 6. There is significant heterogeneity seen throughout the sacrum, the body of L5, and the left bony pelvis. Dimension considerations include Paget's disease of bone, post radiation change, or much less likely metastatic disease. Correlation with clinical findings and any prior outside imaging studies will be required. 7. Additional findings as above. Electronically signed by: Wil Greenfield M.D. 12/29/2017 2:28 PM Dictated Date/Time: 12/29/2017 2:04 PM CHEST ONE VIEW PORTABLE HISTORY: 87 years-old Male ABDOMINAL PAIN/GI acute generalized abdominal pain COMPARISON: Chest radiograph 08/18/2016 TECHNIQUE: Portable AP view of the chest FINDINGS: Patient is slightly rotated to the right. Cardiac silhouette is enlarged, unchanged. Calcification and tortuosity of the aorta. No pneumothorax, pleural effusion or overt pulmonary edema. Lungs are mildly hypoinflated. Mild sigmoidal scoliosis of the spine. Changes of the shoulders and spine are noted. IMPRESSION: Cardiomegaly without acute process. The above report was generated using voice recognition software. It may contain grammatical, syntax or spelling errors. Electronically signed by: Camilo Blanco M.D. 12/29/2017 11:35 AM Dictated Date/Time: 12/29/2017 11:34 AM Laboratory Results 12/29/17 11:50 Red Blood Count 4.41, Mean Corpuscular Volume 84.8, Mean Corpuscular Hemoglobin 27.2, Mean Corpuscular Hemoglobin Concent 32.1, Mean Platelet Volume 9.6, Neutrophils (%) (Auto) 69.8, Lymphocytes (%) (Auto) 19.0, Monocytes (%) (Auto) 9.0, Eosinophils (%) (Auto) 1.7, Basophils (%) (Auto) 0.2, Neutrophils # (Auto) 6.52, Lymphocytes # (Auto) 1.78, Monocytes # (Auto) 0.84, Eosinophils # (Auto) 0.16, Basophils # (Auto) 0.02 12/29/17 11:50 Test 12/29/17 11:50 12/29/17 14:35 White Blood Count 9.35 K/uL (4.8-10.8) Red Blood Count 4.41 M/uL (4.7-6.1) Hemoglobin 12.0 g/dL (14.0-18.0) Hematocrit 37.4 % (42-52) Mean Corpuscular Volume 84.8 fL (80-100) Mean Corpuscular Hemoglobin 27.2 pg (25-34) Mean Corpuscular Hemoglobin Concent 32.1 g/dl (32-36) Platelet Count 241 K/uL (130-400) Mean Platelet Volume 9.6 fL (7.4-10.4) Neutrophils (%) (Auto) 69.8 % Lymphocytes (%) (Auto) 19.0 % Monocytes (%) (Auto) 9.0 % Eosinophils (%) (Auto) 1.7 % Basophils (%) (Auto) 0.2 % Neutrophils # (Auto) 6.52 K/uL (1.4-6.5) Lymphocytes # (Auto) 1.78 K/uL (1.2-3.4) Monocytes # (Auto) 0.84 K/uL (0.11-0.59) Eosinophils # (Auto) 0.16 K/uL (0-0.5) Basophils # (Auto) 0.02 K/uL (0-0.2) RDW Standard Deviation 55.1 fL (36.4-46.3) RDW Coefficient of Variation 17.8 % (11.5-14.5) Immature Granulocyte % (Auto) 0.3 % Immature Granulocyte # (Auto) 0.03 K/uL (0.00-0.02) Prothrombin Time 13.7 SECONDS (9.0-12.0) Prothromb Time International Ratio 1.3 (0.9-1.1) Activated Partial Thromboplast Time 36.2 SECONDS (21.0-31.0) Partial Thromboplastin Ratio 1.4 Anion Gap 9.0 mmol/L (3-11) Est Creatinine Clear Calc Drug Dose 59.1 ml/min Estimated GFR () 73.1 Estimated GFR (Non- 63.1 BUN/Creatinine Ratio 13.2 (10-20) Calcium Level 8.8 mg/dl (8.5-10.1) Magnesium Level 2.0 mg/dl (1.8-2.4) Total Bilirubin 1.0 mg/dl (0.2-1) Aspartate Amino Transf (AST/SGOT) 25 U/L (15-37) Alanine Aminotransferase (ALT/SGPT) 20 U/L (12-78) Alkaline Phosphatase 114 U/L (45-117) Troponin I 0.036 ng/ml (0-0.045) Total Protein 7.6 gm/dl (6.4-8.2) Albumin 2.4 gm/dl (3.4-5.0) Globulin 5.2 gm/dl (2.5-4.0) Albumin/Globulin Ratio 0.5 (0.9-2) Lipase 105 U/L (73-393) Urine Color YELLOW Urine Appearance CLEAR (CLEAR) Urine pH 6.5 (4.5-7.5) Urine Specific Media 1.019 (1.000-1.030) Urine Protein NEG (NEG) Urine Glucose (UA) NEG (NEG) Urine Ketones NEG (NEG) Urine Occult Blood NEG (NEG) Urine Nitrite NEG (NEG) Urine Bilirubin NEG (NEG) Urine Urobilinogen NEG (NEG) Urine Leukocyte Esterase NEG (NEG) Laboratory results reviewed by me. Medications Administered Medications (Trade) Dose Ordered Sig/Ml Route Start Time Stop Time Status Last Admin Dose Admin Sodium Chloride 500 ml @ 999 mls/hr Q31M STAT IV 12/29/17 11:15 12/29/17 11:45 DC 12/29/17 11:15 999 MLS/HR Sodium Chloride 500 ml @ 999 mls/hr Q31M STAT IV 12/29/17 15:09 12/29/17 15:39 DC 12/29/17 15:20 999 MLS/HR Piperacillin Sod/ Tazobactam Sod (Zosyn Iv) 4.5 gm NOW STAT IV 12/29/17 15:09 12/29/17 15:11 DC 12/29/17 15:20 4.5 GM ED Course 1110: The patient was evaluated in room C6. A complete history and physical exam was performed. 1115: Ordered Sodium Chloride 500 ml @ 999 mls/hr IV 1410: I updated with the patient. Nursing staff evaluated the pt's backside for skin breakdown, there was skin breakdown to both buttock areas, no cellulitis 1509: Ordered Zosyn 4.5 gm IV, Sodium Chloride 500 ml @ 999 mls/hr IV 1511: I updated the patient's family. Waiting for call from surgery 1516: I spoke to YARIEL Cohen: General Surgery. She will speak to the doctor about the patient's case and call back. 1548: I consulted Dr. Baez - General Surgery. We spoke to the patient's son on the phone. I will call a [facility] hospitalist. 1604: I consulted Krystle Guadarrama PA-C: [facility] Hospitalist. She will reevaluate the patient for hospitalization. Medical Decision Differential diagnosis: acute colicystitis, drain malpositioning, abscess, electrolyte imbalance, dehydration, anemia, UTI There is no leukocytosis or concerning anemia. No significant electrolyte abnormality, kidney failure or hepatitis. There is no pancreatitis. Urinalysis does not show infection. Chest film does not show pneumonia or CHF. Abdominal and pelvis CT shows evidence for gallstones, gallbladder wall thickening. The drain was in proper position. There was an abscess seen between the gallbladder and abdominal wall. Patient had constipation. There were some changes to the bones of the pelvis and lumbar spine for which follow- up was suggested. Patient was given IV saline, he was given IV Zosyn as antibiotic coverage. The patient is not toxic or febrile. I did consult surgery. The surgeon spoke to the patient's family, the patient is not a candidate for surgery. They recommended a hospital stay for hydration and antibiotics. The patient will likely require transfer to a higher level of care for repeat IR drain placement or abscess drainage. Medication Reconcilliation Current Medication List: was personally reviewed by me Blood Pressure Screening Patient's blood pressure: Low blood pressure referred to hospitalist Consults Time Called: 1516 Consulting Physician: Dr. Baez - General Surgery Returned Call: [address] Baez - [facility] Surgery. We spoke to the patient's son on the phone. I will call a [facility] Hospitalist. Additional Consults: Time Called: 1550 Consulted Physician: Krystle Guadarrama [facility]-C[facility]: 1604 Additional Comments: I consulted Krystle Guadarrama PA-C: [facility] Hospitalist. She will reevaluate the patient for hospitalization. Impression Primary Impression: Intra-abdominal abscess Additional Impressions: Perforated gallbladder Acute cholecystitis Scribe Attestation The scribe's documentation has been prepared under my direction and personally reviewed by me in its entirety. I confirm that the note above accurately reflects all work, treatment, procedures, and medical decision making performed by me. Departure Information Dispostion Being Evaluated By Hospitalist Referrals Helio Molina M.D. (PCP) Patient Instructions My [facility] Problem Qualifiers
[2017-12-29 18:30] VITALS: O2SAT 93
[2017-12-29 19:13] VITALS: BP 114/70; PULSE 69; TEMP 36.4; O2SAT 92
[2017-12-29] MEDS ORDERED: NSS + 20MEQ KCL 1000ML 1,000 ML IV SCH (19:15)
--- NOTE | 2017-12-29 20:07 | History and Physical ---
History & Physical Date & Time of Service: Dec 29, 2017 at 17:25 Chief Complaint: Eval, Referred By Primary Care Physician: Helio Molina M.D. History of Present Illness Source: patient, spouse, clinic records, hospital records Pt is a 87-year-old male with PMH CAD/P stent 3 LAD, chronic systolic HF, paroxysmal atrial fibrillation, HTN, depression, ambulatory dysfunction, cholecystitis s/p drain in 10/2017 presented to ER with complaint of increased weakness. Pt and pt's are poor historians, most of history obtained from out patient records. It is reported 09/28/17 patient had stents to LAD at [facility], he was not a CABG candidate. Patient developed cholecystitis and October 2017 was not surgical candidate and had percutaneous riri tube. Patient reports has not had much drainage from tube at home. Review outpatient records home health nurse has been noted patient disheveled and soiled and are questioning his and 's ability to care for at home. Nurse is also been trying to have patient repositioned secondary to buttocks skin breakdown, however according to notes he does not want to be repositioned throughout the day. noticed some drainage around drainage tube to RUQ. Patient states limited mobility and uses wheelchair, he reports that he sits for the majority of the day reports that he can transfer with assistance of his to wheelchair twice a day. Denies fever/chills, diaphoresis, N/V/D/C, LOCKE, dizziness , syncope, falls, CP, SOB, orthopnea, cough, abdominal pain, other rashes, urinary symptoms. 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 Surgical Problems: (1) History of appendectomy Status: Resolved (2) History of carpal tunnel surgery Status: Resolved (3) History of cataract removal with insertion of prosthetic lens Status: Resolved (4) History of total hip replacement Status: Resolved (5) Hx of total knee arthroplasty Status: Resolved Family History FH: CAD (coronary artery disease) Stroke Social History Smoking Status: Never Smoker Smokeless Tobacco Use: No Alcohol Use: none Drug Use: none Marital Status: Housing status: lives with significant other Immunizations History of Influenza Vaccine: Yes Influenza Vaccine Date: May 18, 2007 History of Tetanus Vaccine?: Yes History of Pneumococcal: No Pneumococcal Date: May 19, 2008 History of Hepatitis B Vaccine: No Allergies Coded Allergies: No Known Allergies (Verified , 12/29/17) Home Medications Scheduled Clopidogrel Bisulfate (Clopidogrel), 75 MG PO DAILY Docusate Sodium (Colace), 1 CAP PO BID Fish Oil (Keavy-3), 1 CAP PO DAILY Furosemide (Furosemide), 40 MG PO DAILY Metoprolol Tartrate (Lopressor) (Lopressor), 50 MG PO Q12 Nitroglycerin (Nitrostat), 0.4 MG UT PRN Pantoprazole (Protonix), 40 MG PO DAILY Rivaroxaban (Xarelto), 20 MG PO QPM Rosuvastatin Calcium (Rosuvastatin Calcium), 20 MG PO DAILY Sertraline HCl (Sertraline HCl), 50 MG PO DAILY Scheduled PRN Polyethylene Glycol 3350 (Miralax), 17 GM PO DAILY PRN for Constipation Senna/Docusate Sod (Senokot S), 1 TAB PO DAILY PRN for Constipation Review of Systems Further ROS unable to be obtained secondary to pt mental status Physical Exam Vital Signs Date Time Temp Pulse Resp B/P (MAP) Pulse Ox O2 Delivery O2 Flow Rate FiO2 12/29/17 14:45 64 18 92/59 95 Room Air 12/29/17 12:32 60 18 114/61 96 Room Air 12/29/17 10:45 36.9 64 18 107/62 94 Room Air General Appearance: no apparent distress, + obese Head: normocephalic, atraumatic Eyes: normal inspection, sclerae normal ENT: + pertinent finding (hard of hearing, mucous membranes moist) Neck: supple, trachea midline Respiratory/Chest: lungs clear, normal breath sounds, no respiratory distress Cardiovascular: regular rate, rhythm, normal peripheral pulses Abdomen/GI: normal bowel sounds, soft, + pertinent finding (RUQ with drainage tube in place with small amount drainage noted around tube site with slight erythema) Extremities/Musculoskelatal: non-tender, + pedal edema (1+bilaterally), + pertinent finding (limited ROM LE) Neurologic/Psych: alert, + pertinent finding (oriented to person and place) Skin: warm/dry, + pertinent finding (buttocks with erythema, skin breakdown without drainage. bilateral calcaneous region with erythema) Diagnostics Laboratory Results Results Past 24 Hours Test 12/29/17 11:50 12/29/17 14:35 Range/Units White Blood Count 9.35 4.8-10.8 K/uL Red Blood Count 4.41 4.7-6.1 M/uL Hemoglobin 12.0 14.0-18.0 g/dL Hematocrit 37.4 42-52 % Mean Corpuscular Volume 84.8 80-100 fL Mean Corpuscular Hemoglobin 27.2 25-34 pg Mean Corpuscular Hemoglobin Concent 32.1 32-36 g/dl Platelet Count 241 130-400 K/uL Mean Platelet Volume 9.6 7.4-10.4 fL Neutrophils (%) (Auto) 69.8 % Lymphocytes (%) (Auto) 19.0 % Monocytes (%) (Auto) 9.0 % Eosinophils (%) (Auto) 1.7 % Basophils (%) (Auto) 0.2 % Neutrophils # (Auto) 6.52 1.4-6.5 K/uL Lymphocytes # (Auto) 1.78 1.2-3.4 K/uL Monocytes # (Auto) 0.84 0.11-0.59 K/uL Eosinophils # (Auto) 0.16 0-0.5 K/uL Basophils # (Auto) 0.02 0-0.2 K/uL RDW Standard Deviation 55.1 36.4-46.3 fL RDW Coefficient of Variation 17.8 11.5-14.5 % Immature Granulocyte % (Auto) 0.3 % Immature Granulocyte # (Auto) 0.03 0.00-0.02 K/uL Prothrombin Time 13.7 9.0-12.0 SECONDS Prothromb Time International Ratio 1.3 0.9-1.1 Activated Partial Thromboplast Time 36.2 21.0-31.0 SECONDS Partial Thromboplastin Ratio 1.4 Sodium Level 140 136-145 mmol/L Potassium Level 3.3 3.5-5.1 mmol/L Chloride Level 96 98-107 mmol/L Carbon Dioxide Level 35 21-32 mmol/L Anion Gap 9.0 3-11 mmol/L Blood Urea Nitrogen 14 7-18 mg/dl Creatinine 1.05 0.60-1.40 mg/dl Est Creatinine Clear Calc Drug Dose 59.1 ml/min Estimated GFR () 73.1 Estimated GFR (Non- 63.1 BUN/Creatinine Ratio 13.2 10-20 Random Glucose 104 70-99 mg/dl Calcium Level 8.8 8.5-10.1 mg/dl Magnesium Level 2.0 1.8-2.4 mg/dl Total Bilirubin 1.0 0.2-1 mg/dl Aspartate Amino Transf (AST/SGOT) 25 15-37 U/L Alanine Aminotransferase (ALT/SGPT) 20 12-78 U/L Alkaline Phosphatase 114 45-117 U/L Troponin I 0.036 0-0.045 ng/ml Total Protein 7.6 6.4-8.2 gm/dl Albumin 2.4 3.4-5.0 gm/dl Globulin 5.2 2.5-4.0 gm/dl Albumin/Globulin Ratio 0.5 0.9-2 Lipase 105 73-393 U/L Urine Color YELLOW Urine Appearance CLEAR CLEAR Urine pH 6.5 4.5-7.5 Urine Specific Lindsay 1.019 1.000-1.030 Urine Protein NEG NEG Urine Glucose (UA) NEG NEG Urine Ketones NEG NEG Urine Occult Blood NEG NEG Urine Nitrite NEG NEG Urine Bilirubin NEG NEG Urine Urobilinogen NEG NEG Urine Leukocyte Esterase NEG NEG Microbiology Results 12/29/17 Blood Culture, Ordered Pending 12/29/17 Blood Culture, Ordered Pending Diagnostic Radiology CXR: IMPRESSION: Cardiomegaly without acute process. CT ABD/PELVIS: IMPRESSION: 1. Streak and motion degraded examination. 2. A percutaneous cholecystostomy tube is in place. This enters the gallbladder from an anterior/inferior approach, and is coiled within the gallbladder lumen. 3. There are layering stones within the gallbladder. The gallbladder wall is mildly thickened and hyperemic. The gallbladder is not distended and only faint pericholecystic stranding is identified. 4. There is a large defect in the gallbladder fundus, with a peripherally enhancing fluid collection seen between the gallbladder fundus and the anterolateral abdominal wall. This collection measures approximately 6 x 6.5 x 1.5 cm and likely represents a biloma/abscess. 5. There is rectosigmoid fecal impaction. 6. There is significant heterogeneity seen throughout the sacrum, the body of L5, and the left bony pelvis. Dimension considerations include Paget's disease of bone, post radiation change, or much less likely metastatic disease. Correlation with clinical findings and any prior outside imaging studies will be required. 7. Additional findings as above. EKG EKG: sinus rhythm, rate 66 Impression Assessment and Plan Pt is a 87-year-old male with PMH CAD/P stent 3 LAD, chronic systolic HF, paroxysmal atrial fibrillation, HTN, depression, ambulatory dysfunction, cholecystitis s/p drain in 10/2017 presented to ER with complaint of increased weakness. RUQ ABSCESS S/P CHOLECYSTITIS HAS PERCUTANEOUS CHOLECYSTECTOMY TUBE placed 10/2017 at [facility] as pt was not surgical candidate at that time Today in ER pt afebrile, BP: 107/62, R: 18, 94% on RA. No leukocytosis. Denies abdominal pain, N/V/D/C. Pt given total 1L NSS, zosyn In ER CT ABD/PELVIS: A percutaneous cholecystostomy tube is in place. This enters the gallbladder from an anterior/inferior approach, and is coiled within the gallbladder lumen. There are layering stones within the gallbladder. The gallbladder wall is mildly thickened and hyperemic. The gallbladder is not distended and only faint pericholecystic stranding is identified. There is a large defect in the gallbladder fundus, with a peripherally enhancing fluid collection seen between the gallbladder fundus and the anterolateral abdominal wall. This collection measures approximately 6 x 6.5 x 1.5 cm and likely represents a biloma/abscess. -pending blood cultures, blood cultures obtained after abx started -pending drainage culture -zosyn -gentle IVF -cbc, electrolytes in am -surgery consulted in ER - recommended that pt not surgical candidate, and would rec keeping the riri tube for life. needs to have a tube check/flush/ replaced and possibly a second percutaneous drain placed which need to be done at tertiary center where IR can do the tube checks/placements GENERALIZED WEAKNESS may be secondary to underlying infection, deconditioning -PT/OT consult HYPOKALEMIA K: 3.3 -replace and monitor PRESSURE ULCERS No discharge noted decubitus ulcer. +redness bilateral calcaneus also -wound consult CAD S/P STENT x3 LAD denies CP, SOB. troponin negative. no acute ST changes -continue plavix, metoprolol, statin PAROXYSMAL ATRIAL FIBRILLATION current sinus rhythm -continue metoprolol with holding parameters, xarelto HTN currently lower BP's -hold lasix and re-evaluate tomorrow -continue metoprolol with holding parameters DEPRESSION -continue sertraline DVT Prophylaxis -on xarelto Admit tele Full Code as per discussion with pt and Follows with Dr Molina for routine care Social service consult for volunteer services assistant with discharge planning Pt was seen with Dr Razo. See addendum ADDENDUM: This is an 87 year old male with a past medical history of acute cholecystitis s /p cholecystomy tube placed, CAD, depression/anxiety, paroxysmal atrial fibrillation - lives at home with his ; he is bed bound and has a hospital bed at home; son found him at home today not getting the care he needs. He urinates in a urinal and has a bed kaye for bowel movements; as per , he has had multiple wounds on the back. Patient states he has multiple wounds due to the hospital bed and being bed bound. He is very weak and lethargic. On exam, he has no acute distress, but chronically ill appearing. Cholecystotomy tube in placed, draining. General surgery saw the patient, at this time, we'll do antibiotics, case management for likely placement. May need a transfer to tertiary care center for interventional radiology for evaluation of the tube. Resuscitation Status VTE Prophylaxis Will order VTE Prophylaxis: Yes
[2017-12-29] MEDS: METOPROLOL TARTRATE 50 MG TAB PO SCH (20:51)
[2017-12-29] MEDS: PIPERACILL/TAZOBAC IV 3.375 GM in D5W 100ML IV SCH (20:51)
[2017-12-29] MEDS ORDERED: RIVAROXABAN 20 MG TAB PO SCH (21:00)
[2017-12-29] MEDS: DOCUSATE SODIUM 100 MG CAP PO SCH (21:32)
[2017-12-29 23:02] VITALS: BP 114/70; PULSE 69; TEMP 36.4; BMI 31.2
[2017-12-30] VITALS (8 sets, daily range): BP systolic 96–123; BP diastolic 56–74; PULSE 61–77; TEMP 36.4–36.9; O2SAT 91–96; Ht 180.3 cm; Wt 101.5 kg
[2017-12-30] MEDS: PIPERACILL/TAZOBAC IV 3.375 GM in D5W 100ML IV SCH ×2 (04:12→11:22)
[2017-12-30 06:12] LABS: HEMATOCRIT 33.9 % (42-52); HEMOGLOBIN 10.6 g/dL (14.0-18.0); MEAN CELL VOLUME 85.4 fL (80-100); MEAN CORPUSCULAR HEMOGLOBIN 26.7 pg (25-34); MEAN CORPUSCULAR HGB CONC 31.3 g/dl (32-36); MEAN PLATELET VOLUME 10.1 fL (7.4-10.4); PLATELET COUNT 229 K/uL (130-400); RED CELL DISTRIBUTION WIDTH SD 56.1 fL (36.4-46.3)
[2017-12-30 06:41] LABS: CALCIUM 8.3 mg/dl (8.5-10.1); CREATININE 1.1 mg/dl (0.60-1.40); POTASSIUM 3.8 mmol/L (3.5-5.1)
[2017-12-30] MEDS: DOCUSATE SODIUM 100 MG CAP PO SCH (08:01)
[2017-12-30] MEDS: METOPROLOL TARTRATE 50 MG TAB PO SCH (08:01)
[2017-12-30] MEDS ORDERED: PANTOprazole SOD 40 MG TAB PO SCH (09:00)
[2017-12-30] MEDS ORDERED: ROSUVASTATIN CALCIUM 20 MG TAB PO SCH (09:00)
[2017-12-30] MEDS ORDERED: CLOPIDOGREL BISULFATE 75 MG TAB PO SCH (09:00)
[2017-12-30] MEDS ORDERED: SERTRALINE HCL 50 MG TAB PO SCH (09:00)
--- NOTE | 2017-12-30 10:30 | Surgery Progress Note ---
Surgery Progress Note Date of Service Dec 30, 2017. Subjective pt seen. feeling well/no pain. Objective Vital Signs: Date Time Temp Pulse Resp B/P (MAP) Pulse Ox O2 Delivery O2 Flow Rate FiO2 12/30/17 08:00 Room Air 12/30/17 07:22 36.6 77 22 116/74 (88) 93 Room Air 12/30/17 07:02 36.9 68 18 112/70 (84) 93 Room Air 12/30/17 02:39 36.4 71 16 113/68 (83) 93 Room Air 12/30/17 00:20 36.9 73 16 96/61 (73) 96 Room Air 12/29/17 23:02 36.4 69 18 114/70 Room Air 12/29/17 20:00 Room Air 12/29/17 19:13 36.4 69 18 114/70 (85) 92 Room Air 12/29/17 18:30 72 18 116/65 93 12/29/17 18:22 72 18 116/65 93 Room Air 12/29/17 17:00 70 18 119/80 93 Room Air 12/29/17 14:45 64 18 92/59 95 Room Air 12/29/17 12:32 60 18 114/61 96 Room Air 12/29/17 10:45 36.9 64 18 107/62 94 Room Air General Appearance: no apparent distress Respiratory/Chest: no respiratory distress, no accessory muscle use Abdomen: non tender, non distended, soft, + pertinent finding (riri tube with scant output. some purulent drainage around it) Laboratory Results: Results Past 24 Hours Test 12/29/17 11:50 12/29/17 14:35 12/30/17 05:51 Range/Units White Blood Count 9.35 8.90 4.8-10.8 K/uL Red Blood Count 4.41 3.97 4.7-6.1 M/uL Hemoglobin 12.0 10.6 14.0-18.0 g/dL Hematocrit 37.4 33.9 42-52 % Mean Corpuscular Volume 84.8 85.4 80-100 fL Mean Corpuscular Hemoglobin 27.2 26.7 25-34 pg Mean Corpuscular Hemoglobin Concent 32.1 31.3 32-36 g/dl Platelet Count 241 229 130-400 K/uL Mean Platelet Volume 9.6 10.1 7.4-10.4 fL Neutrophils (%) (Auto) 69.8 % Lymphocytes (%) (Auto) 19.0 % Monocytes (%) (Auto) 9.0 % Eosinophils (%) (Auto) 1.7 % Basophils (%) (Auto) 0.2 % Neutrophils # (Auto) 6.52 1.4-6.5 K/uL Lymphocytes # (Auto) 1.78 1.2-3.4 K/uL Monocytes # (Auto) 0.84 0.11-0.59 K/uL Eosinophils # (Auto) 0.16 0-0.5 K/uL Basophils # (Auto) 0.02 0-0.2 K/uL RDW Standard Deviation 55.1 56.1 36.4-46.3 fL RDW Coefficient of Variation 17.8 18.0 11.5-14.5 % Immature Granulocyte % (Auto) 0.3 % Immature Granulocyte # (Auto) 0.03 0.00-0.02 K/uL Prothrombin Time 13.7 9.0-12.0 SECONDS Prothromb Time International Ratio 1.3 0.9-1.1 Activated Partial Thromboplast Time 36.2 21.0-31.0 SECONDS Partial Thromboplastin Ratio 1.4 Sodium Level 140 142 136-145 mmol/L Potassium Level 3.3 3.8 3.5-5.1 mmol/L Chloride Level 96 100 98-107 mmol/L Carbon Dioxide Level 35 35 21-32 mmol/L Anion Gap 9.0 7.0 3-11 mmol/L Blood Urea Nitrogen 14 14 7-18 mg/dl Creatinine 1.05 1.10 0.60-1.40 mg/dl Est Creatinine Clear Calc Drug Dose 59.1 56.3 ml/min Estimated GFR () 73.1 69.1 Estimated GFR (Non- 63.1 59.6 BUN/Creatinine Ratio 13.2 12.5 10-20 Random Glucose 104 86 70-99 mg/dl Calcium Level 8.8 8.3 8.5-10.1 mg/dl Magnesium Level 2.0 1.9 1.8-2.4 mg/dl Total Bilirubin 1.0 0.2-1 mg/dl Aspartate Amino Transf (AST/SGOT) 25 15-37 U/L Alanine Aminotransferase (ALT/SGPT) 20 12-78 U/L Alkaline Phosphatase 114 45-117 U/L Troponin I 0.036 0-0.045 ng/ml Total Protein 7.6 6.4-8.2 gm/dl Albumin 2.4 3.4-5.0 gm/dl Globulin 5.2 2.5-4.0 gm/dl Albumin/Globulin Ratio 0.5 0.9-2 Lipase 105 73-393 U/L Urine Color YELLOW Urine Appearance CLEAR CLEAR Urine pH 6.5 4.5-7.5 Urine Specific Lithia 1.019 1.000-1.030 Urine Protein NEG NEG Urine Glucose (UA) NEG NEG Urine Ketones NEG NEG Urine Occult Blood NEG NEG Urine Nitrite NEG NEG Urine Bilirubin NEG NEG Urine Urobilinogen NEG NEG Urine Leukocyte Esterase NEG NEG Microbiology Results 12/29/17 Blood Culture, Received Pending 12/29/17 Blood Culture, Received Pending 12/30/17 Gram Stain - Final, Resulted 12/30/17 Wound Culture, Resulted Pending Assessment & Plan cholecystitis with abcess clinically doing well rec transfer for IR tube check/replacement/drain placement labs reviewed I continue to not recommend surgical intervention. cont antibiotics
--- NOTE | 2017-12-30 12:41 | Clinical Documentation Query ---
CLINICAL DOCUMENTATION QUERY Dr. HOUSE, In your clinical opinion is this patient being managed for: ( x ) RUQ abscess due to percutaneous riri tube ( ) Not Agree ( ) Other explanation of clinical findings (No explanation is considered a No Response) ( ) Unable to determine ( ) Need to Discuss (Phone CDS or qliq) (No discussion is considered a No Response) RUQ ABSCESS DUE TO BLOCK OF MALFUNCTIONING PERCUTANEOUS CHOLECYSTECTOMY TUBE The medical record reflects the following clinical findings, treatment, and risk factors. Clinical Indicators:87 yo male presenting with RUQ abscess. In October 2017 pt developed cholecystitis and had a percutaneous riri tube inserted d/t not being a surgical candidate. Treatment: NSS bolus then continuous, IV zosyn, surgical consult Risk Factors: age, percutaneous riri tube due to cholecystitis Please clarify and document your clinical opinion in the progress notes and discharge summary. Terms such as "probable", "suspected", "likely", "questionable", "possible", or "still to be ruled out" are acceptable. IF IN AGREEMENT, YOU MUST DOCUMENT ABOVE DIAGNOSTIC STATEMENT IN DAILY PROGRESS NOTES AND DISCHARGE SUMMARY. This document is not part of the patient's record. Thank You, Claire Chen, RN [phone]
[2017-12-30] MEDS ORDERED: PIPE1INJ11 IV (15:29)
--- NOTE | 2017-12-30 15:32 | Discharge Instructions ---
Discharge Instructions Date of Service Dec 30, 2017. Admission Reason for Admission: Weakness Discharge Discharge Diagnosis / Problem: GANGREANOUS GALL BLADDER WITH ABSCESS S/P PERCUTENEOUS NEPHROSOTOMY TUBE Discharge Goals Goal(s): Decrease discomfort, Improve function, Increase independence, Improve disease control, Diagnostic testing, Therapeutic intervention Activity Recommendations Activity Limitations: as noted below . Instructions / Follow-Up Instructions / Follow-Up PATIENT IS TRANSFERRED TO [facility] FOR IR GUIDED DRAINAGE OF GALL BLADDER ABSCESS ACCEPTING PHYSICIAN DR GADIEL QUINN ( [facility] ) Current Hospital Diet Patient's current hospital diet: AHA Diet (Heart Healthy) Discharge Diet Recommended Diet: N/A Pending Studies Studies pending at discharge: no Medical Emergencies . Who to Call and When: Medical Emergencies: If at any time you feel your situation is an emergency, please call 911 immediately. . Non-Emergent Contact Non-Emergency issues call your: Primary Care Provider . . "Provider Documentation" section prepared by Karly Lopez. .
--- NOTE | 2017-12-30 15:38 | Discharge Summary ---
Discharge Summary Date of Service Dec 30, 2017. Discharge Summary Admission Date: Dec 29, 2017 at 16:58 Discharge Date: Dec 30, 2017 Discharge Disposition: Acute care facility ([facility] ) Principal Diagnosis: GANGRENOUS GALL BLADDER WITH ABSCESS S/P PERCUTANEOUS CHOLECYSTOTOMY TUBE PLACEMENT Procedures: CT ABDOMEN/PELVIS : IMPRESSION: 1. Streak and motion degraded examination. 2. A percutaneous cholecystostomy tube is in place. This enters the gallbladder from an anterior/inferior approach, and is coiled within the gallbladder lumen. 3. There are layering stones within the gallbladder. The gallbladder wall is mildly thickened and hyperemic. The gallbladder is not distended and only faint pericholecystic stranding is identified. 4. There is a large defect in the gallbladder fundus, with a peripherally enhancing fluid collection seen between the gallbladder fundus and the anterolateral abdominal wall. This collection measures approximately 6 x 6.5 x 1.5 cm and likely represents a biloma/abscess. 5. There is rectosigmoid fecal impaction. 6. There is significant heterogeneity seen throughout the sacrum, the body of L5, and the left bony pelvis. Dimension considerations include Paget's disease of bone, post radiation change, or much less likely metastatic disease. Correlation with clinical findings and any prior outside imaging studies will be required. 7. Additional findings as above. Consultations: GENERAL SURGERY DR HERCULES Medication Reconciliation New Medications: Piperacillin Sodium-Tazobactam (Zosyn) 1 Inj Inj 3.376 MG IV Q8 for 14 Days Continued Medications: Metoprolol Tartrate (Lopressor) (Lopressor) 50 Mg Tab 50 MG PO Q12 Discontinued Medications: Clopidogrel Bisulfate (Clopidogrel) 75 Mg Tab 75 MG PO DAILY Docusate Sodium (Colace) 100 Mg Cap 1 CAP PO BID for 30 Days, #60 CAP Fish Oil (Ensign-3) 1 Ea Cap 1 CAP PO DAILY, CAP Furosemide (Furosemide) 20 Mg Tab 40 MG PO DAILY Nitroglycerin (Nitrostat) 0.4 Mg Tab 0.4 MG UT PRN, BTL Pantoprazole (Protonix) 40 Mg Tab 40 MG PO DAILY, #30 TAB Polyethylene Glycol 3350 (Miralax) 1 Pow Pow 17 GM PO DAILY PRN for Constipation, #527 GM Rivaroxaban (Xarelto) 20 Mg Tab 20 MG PO QPM Rosuvastatin Calcium (Rosuvastatin Calcium) 20 Mg Tab 20 MG PO DAILY Senna/Docusate Sod (Senokot S) 1 Tab Tab 1 TAB PO DAILY PRN for Constipation, TAB Sertraline HCl (Sertraline HCl) 50 Mg Tab 50 MG PO DAILY Admission Information HPI (per Admitting provider): Pt is a 87-year-old male with PMH CAD/P stent 3 LAD, chronic systolic HF, paroxysmal atrial fibrillation, HTN, depression, ambulatory dysfunction, cholecystitis s/p drain in 10/2017 presented to ER with complaint of increased weakness. Pt and pt's are poor historians, most of history obtained from out patient records. It is reported 09/28/17 patient had stents to LAD at [facility], he was not a CABG candidate. Patient developed cholecystitis and October 2017 was not surgical candidate and had percutaneous riri tube. Patient reports has not had much drainage from tube at home. Review outpatient records home health nurse has been noted patient disheveled and soiled and are questioning his and 's ability to care for at home. Nurse is also been trying to have patient repositioned secondary to buttocks skin breakdown, however according to notes he does not want to be repositioned throughout the day. noticed some drainage around drainage tube to RUQ. Patient states limited mobility and uses wheelchair, he reports that he sits for the majority of the day reports that he can transfer with assistance of his to wheelchair twice a day. Denies fever/chills, diaphoresis, N/V/D/C, LOCKE, dizziness , syncope, falls, CP, SOB, orthopnea, cough, abdominal pain, other rashes, urinary symptoms. Physical Exam (per Admitting): General Appearance: no apparent distress, + obese Head: normocephalic, atraumatic Eyes: normal inspection, sclerae normal ENT: + pertinent finding (hard of hearing, mucous membranes moist) Neck: supple, trachea midline Respiratory/Chest: lungs clear, normal breath sounds, no respiratory distress Cardiovascular: regular rate, rhythm, normal peripheral pulses Abdomen/GI: normal bowel sounds, soft, + pertinent finding (RUQ with drainage tube in place with small amount drainage noted around tube site with slight erythema) Extremities/Musculoskelatal: non-tender, + pedal edema (1+bilaterally), + pertinent finding (limited ROM LE) Neurologic/Psych: alert, + pertinent finding (oriented to person and place) Skin: warm/dry, + pertinent finding (buttocks with erythema, skin breakdown without drainage. bilateral calcaneous region with erythema) Hospital Course has minimum pain on RUQ no fever or chills No complain of nausea no chest pain or SOB PHYSICAL EXAM : GEN ; chronically ill-appearing elderly male, no apparent distress HEENT:, Pupils reactive to light, sclerae nonicteric Heart: Regular S1-S2 Lungs: Diminished, no wheeze or rales Abdomen: Soft nontender Extremities: Large stage II-III sacral decubitus ulcer, nephrostomy tube present on the right flank minimum treatment Neuro: Baseline dementia, forgetfulness, no focal neurological deficit Last 8 Hrs Date Time Temp Pulse Resp B/P (MAP) Pulse Ox O2 Delivery O2 Flow Rate FiO2 12/30/17 15:03 36.7 71 20 103/56 (72) 96 Room Air 12/30/17 14:47 36.5 61 18 92 Room Air 12/30/17 11:45 36.5 61 18 123/70 (87) 92 Room Air RUE ABSCESS DUE TO BLOCKED PERCUTANEOUS CHOLECYSTECTOMY TUBE History of cholecystitis, was treated at [facility] in [place] 10/1999 Patient was found to be a very poor surgical candidate had percutaneous cholecystostomy tube placed Given patient's age and comorbidities, always will be a poor candidate for any operative procedure Will need a lifelong Cholecystostomy tube drainage Presents with weakness, discomfort on the right flank area, CT abdomen pelvis shows possible collection of large 6.5 and 6 and a 3 cm fluid collection suggestive of abscess Patient is not septic, vitals remained stable, no lactic acid patient Patient will need IR guided drainage of right upper quadrant abscess was discussed case with [facility] Patient [place] [facility] [place] will be transferred later today by ambulance SACRAL DECUBITUS ULCER Patient at present is completely bedbound, with limited movement Patient's is also very elderly with dementia Presents with multiple large area of skin breakdown/pressure ulcer wound care consulted Follow wound culture Low air loss bed, frequent repositioning HX OF AFIB Rate controlled On beta-carlos was discontinued Hold Eliquis as patient will need IR guided surgical procedure CAD : no symptom of angina Continue outpatient cardiac meds CODE STATUS : FULL CODE DVT PROPHYLAXIS : SUB Q HEPARIN DISPOSITION ; pt needs to be transferred to Tertiary Care for IR guided drainage of RUQ / chronic cholecystitis abscess [facility] be [facility] ACLS Total time spent on discharge = 4O mins This includes examination of the patient, discharge planning, medication reconciliation, and communication with other providers. Discharge Instructions Discharge Instructions Date of Service Dec 30, 2017. Admission Reason for Admission: Weakness Discharge Discharge Diagnosis / Problem: GANGRENOUS GALL BLADDER WITH ABSCESS S/P PERCUTANEOUS CHOLECYSTOTOMY TUBE PLACEMENT Discharge Goals Goal(s): Decrease discomfort, Improve function, Increase independence, Improve disease control, Diagnostic testing, Therapeutic intervention Activity Recommendations Activity Limitations: as noted below . Instructions / Follow-Up Instructions / Follow-Up PATIENT IS TRANSFERRED TO [facility] FOR IR GUIDED DRAINAGE OF GALL BLADDER ABSCESS ACCEPTING PHYSICIAN DR GADIEL QUINN ( [facility] HOSPITALIST ) Current Hospital Diet Patient's current hospital diet: AHA Diet (Heart Healthy) Discharge Diet Recommended Diet: N/A Pending Studies Studies pending at discharge: no Medical Emergencies . Who to Call and When: Medical Emergencies: If at any time you feel your situation is an emergency, please call 911 immediately. . Non-Emergent Contact Non-Emergency issues call your: Primary Care Provider . . "Provider Documentation" section prepared by Karly Lopez. .
== END 2017-12-30 20:40 | disposition short-term general hospital (02) | DRG 919 ==
LOC: EDBD 10:40 → C.EDC 10:41 → C.2T 16:58 → ENRESERV 17:16
PROVIDERS: ADMIT Family Medicine; ATTEND Hospitalist
DX: T85.898A Other specified complication of other internal prosthetic devices, implants and grafts, initial encounter (principal); K81.0 Acute cholecystitis; K82.2 Perforation of gallbladder; K65.1 Peritoneal abscess; L89.153 Pressure ulcer of sacral region, stage 3; L89.313 Pressure ulcer of right buttock, stage 3; I11.0 Hypertensive heart disease with heart failure; I50.22 Chronic systolic (congestive) heart failure; E78.5 Hyperlipidemia, unspecified; R53.1 Weakness; F03.90 Unspecified dementia, unspecified severity, without behavioral disturbance, psychotic disturbance, mood disturbance, and anxiety; I48.0 Paroxysmal atrial fibrillation; I25.10 Atherosclerotic heart disease of native coronary artery without angina pectoris; F32.9 Major depressive disorder, single episode, unspecified; E87.6 Hypokalemia; Z79.01 Long term (current) use of anticoagulants; Z79.02 Long term (current) use of antithrombotics/antiplatelets; Z79.899 Other long term (current) drug therapy; Y82.8 Other medical devices associated with adverse incidents; Y83.3 Surgical operation with formation of external stoma as the cause of abnormal reaction of the patient, or of later complication, without mention of misadventure at the time of the procedure

== ENCOUNTER 2018-11-30 17:19 | Inpatient (IN) ==
[2018-11-30] MEDS ORDERED: SODIUM CHLORIDE 0.9% 500 ML IV ONE (17:30)
[2018-11-30] MEDS ORDERED: PIPERACILL/TAZOBAC CONSULT ACTIVE PRN ×2 (17:33→22:29)
[2018-11-30] MEDS ORDERED: PIPERACILLIN/TAZOBACTAM 4.5 GM/120 ML BAG IV ONE (17:33)
--- NOTE | 2018-11-30 17:47 | XRay Report ---
XR chest 1V portable CLINICAL HISTORY: Sepsis COMPARISON STUDY: 12/29/2017 FINDINGS: The heart is borderline enlarged. There is aortic tortuosity/ectasia. There are low lung vo lumes. There are basilar opacities likely representing hypoventilatory changes although an infectious /inflammatory processes could appear similar. There are no significant pleural effusions. There are a dvanced arthritic changes within the shoulders.[ IMPRESSION: 1. Low lung volumes with increased basilar markings, likely on a hypoventilatory basis Electronically signed by: Marko Oreilly M.D. 11/30/2018 5:46 PM
--- NOTE | 2018-11-30 17:54 | Emergency Department Note ---
Entered by Ya Franklin acting as a scribe for Pool Serrato MD History of Present Illness General Chief complaint: Infection, Wound Stated complaint: DRAINAGE FROM GALL BLADDER SITE Time Seen by Provider: 11/30/18 17:21 Source: patient History of Present Illness Provider complaint: Gallbladder drainage Onset (ago): week(s) 2 Location: abdomen Pain Consistency: + constant Quality: + constant Associated symptoms: + other; no fever/chills (fever) and no nausea/vomiting (vomiting ) The patient is an 88 year old male who presents to the ED with complaints of constant gallbladder drainage that started 2 weeks ago. The patient had his gallbladder drainage removed on November 16, 2018 in [place]. He reports his gallbladder has been draining for the last couple of days. The patient is concerned about infection. He states he is not in pain. The patient denies fever or vomiting. Home Medications Home Medications Medication Instructions Recorded Confirmed Type 2 Maycol/Cc Supplement 60 ml PO QID 11/30/18 11/30/18 History Liquid Protein Supp 30 ml PO DAILY 11/30/18 11/30/18 History acetaminophen [Tylenol Extra 1,000 mg PO Q8 PRN 11/30/18 11/30/18 History Strength] acetaminophen [Tylenol] 650 mg PO Q4 PRN 11/30/18 11/30/18 History atorvastatin 40 mg PO HS 11/30/18 11/30/18 History cholecalciferol (vitamin D3) 5,000 unit PO DAILY 11/30/18 11/30/18 History [Vitamin D3] clopidogrel [Plavix] 75 mg PO DAILY 11/30/18 11/30/18 History flaxseed oil 2,000 mg PO BID 11/30/18 11/30/18 History furosemide [Lasix] 40 mg PO DAILY 11/30/18 11/30/18 History lactobacillus combination no.4 0 mmu cells PO BID 11/30/18 11/30/18 History [Probiotic] metoprolol tartrate 50 mg PO BID 11/30/18 11/30/18 History mirtazapine [Remeron] 7.5 mg PO HS 11/30/18 11/30/18 History omega 4-rgf-cnz-fish oil [Fish Oil] 1 cap PO DAILY 11/30/18 11/30/18 History potassium chloride 10 meq PO DAILY 11/30/18 11/30/18 History rivaroxaban [Xarelto] 15 mg PO PM 11/30/18 11/30/18 History sennosides-docusate sodium 1 tab PO BID 11/30/18 11/30/18 History [Senna-S] sertraline 50 mg PO DAILY 11/30/18 11/30/18 History vit C,Z-Sx-uagkv-lutein-zeaxan 1 tab PO AMHS 11/30/18 11/30/18 History [PreserVision AREDS-2] vitamin B complex 1 tab PO DAILY 11/30/18 11/30/18 History Allergies Allergy/AdvReac Type Severity Reaction Status Date / Time No Known Allergies Allergy Verified 11/30/18 19:27 Past Med/Surg History Medical History Hypertension (Chronic) Weakness CAD (coronary artery disease) (Chronic) "s/p stent x 3 LAD - 09/28/17 [place] [place]" Dislocated hip (Resolved) Dislocation of internal right hip prosthesis (Resolved) Surgical History History of endarterectomy "2001 - Dr Mijares - [facility] Left carotid endarterectomy with vein patch " Family History Other Family history non-contributory Social History Current Living Situation: Retirement Feels Safe at Home: Yes Smoking Status: Never smoker Review of Systems See HPI for pertinent positives & negatives. and A total of 10 systems reviewed and were otherwise negative Physical Exam Vital Signs Vital Signs - 24 hr 11/30/18 17:24 11/30/18 17:27 11/30/18 17:30 Temperature Temperature Source Sepsis Recent Fever Within 48 Hours Sepsis New/Unexplained Change in Mental Status Sepsis Action Taken by Nursing Pulse Rate 70 70 69 Pulse Rate [Apical] Pulse Rate from SpO2 Sensor 69 69 62 Respiratory Rate 14 16 12 Respiratory Effort / Characteristics Respiratory Depth Blood Pressure 97/62 L 94/56 L Blood Pressure [Left Arm] Blood Pressure Mean 73 68 Blood Pressure Mean [Left Arm] Pulse Oximetry 93 95 95 Oxygen Delivery Method 11/30/18 17:31 11/30/18 17:45 11/30/18 18:00 Temperature 36.7 C Temperature Source Oral Sepsis Recent Fever Within 48 Hours No Sepsis New/Unexplained Change in Mental Status No Sepsis Action Taken by Nursing No Action Required Pulse Rate 70 68 71 Pulse Rate [Apical] Pulse Rate from SpO2 Sensor 68 Respiratory Rate 18 15 19 Respiratory Effort / Characteristics Non-Labored Spontaneous Respiratory Depth Normal Blood Pressure 99/59 L Blood Pressure [Left Arm] Blood Pressure Mean 72 Blood Pressure Mean [Left Arm] Pulse Oximetry 96 100 Oxygen Delivery Method Room Air 11/30/18 18:15 11/30/18 18:30 11/30/18 19:47 Temperature Temperature Source Sepsis Recent Fever Within 48 Hours Sepsis New/Unexplained Change in Mental Status Sepsis Action Taken by Nursing Pulse Rate 70 69 Pulse Rate [Apical] 64 Pulse Rate from SpO2 Sensor Respiratory Rate 15 18 20 Respiratory Effort / Characteristics Respiratory Depth Blood Pressure 104/60 Blood Pressure [Left Arm] 98/60 L Blood Pressure Mean 74 Blood Pressure Mean [Left Arm] 72 Pulse Oximetry 94 Oxygen Delivery Method Room Air General: Non-ill appearing older male in no acute distress. Hard of hearing but seems to answer questions appropriately. HEENT: Normal cephalic atraumatic. Pupils are equal round and reactive to light. Extraocular movements are intact. Oropharynx is pink with moist mucous membranes. No swelling of the mouth lips or tongue. Neck: Supple with a midline trachea. No meningeal signs or stiffness, no JVD or bruits. No Stridor. Chest: Clear to auscultation bilaterally. No wheezes or rhonchi. No increased work of breathing. Heart: regular rate and rhythm. Abdomen: Soft nontender, nondistended without rebound guarding or rigidity. Area in right upper quadrant has purulent drainage from previous gallbladder drain si te. Extremities: No cyanosis clubbing or edema. No calf tenderness or asymmetry Spine/Back. Non tender to palpation. No CVA tenderness Skin: Good turgor without rashes. Neurologic exam: Cranial nerves two through 12 are intact. Motor and sensation are intact and symmetrical throughout. Course 1723: The patient was evaluated in room B7. A complete history and physical exam was performed. 1914: I reviewed the patient's case with Dr. Crum, General Surgery. 1920: I tried to call the son twice. 1929: I reviewed the patient's case with the surgeon in [place]. He recommends for the patient to be admitted. 1943: I reviewed the patient's case with Dr. Palacios, [facility] Hospitalist. He will admit the patient. Administered Medications Ioversol (Optiray 320 100ml) 90 ml IV ONCE PRN PRN Reason: Interaction Checking Stop: 12/04/18 18:42 Last Admin: 11/30/18 18:44 Dose: 90 ml Documented by: [id number] Discontinued Medications Sodium Chloride (Nss) 500 mls @ 999 mls/hr IV .Q31M ONE Stop: 11/30/18 18:00 Last Admin: 11/30/18 19:25 Dose: 999 mls/hr Documented by: [id number] Piperacillin Sod/Tazobactam Sod (Zosyn) 4.5 gm in 120 mls @ 240 mls/hr IV NOW ONE Stop: 11/30/18 18:02 Last Admin: 11/30/18 19:25 Dose: 240 mls/hr Documented by: [id number] Medical Decision Making Differential Diagnosis Differential Diagnosis: Infection, abscess, sepsis Medical Records Attestation: I reviewed the patient's medical records. Home Medications Current Medication List: was personally reviewed by me Laboratory Data Attestation: I reviewed the patient's lab results. Result diagrams: 11/30/18 18:01 11/30/18 18:01 Lab Results 11/30/18 11/30/18 11/30/18 Range/Units 18:01 18:01 18:01 WBC 11.74 H (4.8-10.8) K/uL RBC 4.49 L (4.7-6.1) M/uL Hgb 12.3 L (14.0-18.0) g/dL Hct 38.1 L (42-52) % MCV 84.9 (80-100) fL MCH 27.4 (25-34) pg MCHC 32.3 (32-36) g/dL RDW Std Deviation 55.1 H (36.4-46.3) fL RDW Coeff of Roosevelt 17.8 H (11.5-14.5) % Plt Count 226 (130-400) K/uL MPV 10.5 H (7.4-10.4) fL Immature Gran % (Auto) 0.2 % Neut % (Auto) 65.4 % Lymph % (Auto) 22.9 % Price % (Auto) 8.7 % Eos % (Auto) 2.5 % Baso % (Auto) 0.3 % Immature Gran # (Auto) 0.02 (0.00-0.02) K/uL Neut # (Auto) 7.69 H (1.4-6.5) K/uL Lymph # (Auto) 2.69 (1.2-3.4) K/uL Price # (Auto) 1.02 H (0.11-0.59) K/uL Eos # (Auto) 0.29 (0-0.5) K/uL Baso # (Auto) 0.03 (0-0.2) K/uL PT Cancelled INR Cancelled APTT Cancelled PTT Ratio Cancelled Sodium 143 (136-145) mmol/L Potassium 3.7 (3.5-5.1) mmol/L Chloride 104 (98-107) mmol/L Carbon Dioxide 32 (21-32) mmol/L Anion Gap 7.0 (3-11) BUN 40 H (7-18) mg/dl Creatinine 1.21 (0.6-1.4) mg/dl Est Cr Clr Drug Dosing 49.4 ml/min Est GFR ( Amer) 61.1 Est GFR (Non-Af Amer) 52.8 BUN/Creatinine Ratio 32.6 H (10-20) Glucose 109 H (70-99) mg/dl Lactate (0.4-2.0) mmol/L Calcium 9.0 (8.5-10.1) mg/dl Total Bilirubin 0.4 (0.2-1) mg/dl AST 29 (15-37) U/L ALT 24 (12-78) U/L Alkaline Phosphatase 130 H (45-117) U/L Total Protein 8.1 (6.4-8.2) gm/dl Albumin 2.8 L (3.4-5.0) gm/dl Globulin 5.3 H (2.5-4.0) gm/dl Albumin/Globulin Ratio 0.5 L (0.9-2) Specimen Hemolysis 11/30/18 11/30/18 Range/Units 18:01 18:54 WBC (4.8-10.8) K/uL RBC (4.7-6.1) M/uL Hgb (14.0-18.0) g/dL Hct (42-52) % MCV (80-100) fL MCH (25-34) pg MCHC (32-36) g/dL RDW Std Deviation (36.4-46.3) fL RDW Coeff of Roosevelt (11.5-14.5) % Plt Count (130-400) K/uL MPV (7.4-10.4) fL Immature Gran % (Auto) % Neut % (Auto) % Lymph % (Auto) % Price % (Auto) % Eos % (Auto) % Baso % (Auto) % Immature Gran # (Auto) (0.00-0.02) K/uL Neut # (Auto) (1.4-6.5) K/uL Lymph # (Auto) (1.2-3.4) K/uL Price # (Auto) (0.11-0.59) K/uL Eos # (Auto) (0-0.5) K/uL Baso # (Auto) (0-0.2) K/uL PT 12.4 H INR 1.2 H APTT 39.6 H PTT Ratio 1.5 Sodium (136-145) mmol/L Potassium (3.5-5.1) mmol/L Chloride (98-107) mmol/L Carbon Dioxide (21-32) mmol/L Anion Gap (3-11) BUN (7-18) mg/dl Creatinine (0.6-1.4) mg/dl Est Cr Clr Drug Dosing ml/min Est GFR ( Amer) Est GFR (Non-Af Amer) BUN/Creatinine Ratio (10-20) Glucose (70-99) mg/dl Lactate 1.3 (0.4-2.0) mmol/L Calcium (8.5-10.1) mg/dl Total Bilirubin (0.2-1) mg/dl AST (15-37) U/L ALT (12-78) U/L Alkaline Phosphatase (45-117) U/L Total Protein (6.4-8.2) gm/dl Albumin (3.4-5.0) gm/dl Globulin (2.5-4.0) gm/dl Albumin/Globulin Ratio (0.9-2) Specimen Hemolysis Imaging Data Radiologist's Impression: Radiology results as stated below per my review and the radiologist's interpretation: XR chest 1V portable CLINICAL HISTORY: Sepsis COMPARISON STUDY: 12/29/2017 FINDINGS: The heart is borderline enlarged. There is aortic tortuosity/ectasia. There are low lung volumes. There are basilar opacities likely representing hypoventilatory changes although an infectious/inflammatory processes could appear similar. There are no significant pleural effusions. There are advanced arthritic changes within the shoulders.[ IMPRESSION: 1. Low lung volumes with increased basilar markings, likely on a hypoventilatory basis Electronically signed by: Marko Oreilly M.D. 11/30/2018 5:[address] abd pelvis IV con only CT DOSE: 1648.87 mGy.cm HISTORY: Postoperative evaluation eval for abcess, s/p GB drain removal TECHNIQUE: Multiaxial CT images of the abdomen and pelvis were performed following the use of intravenous contrast. A dose lowering technique was utiliz ed adhering to the principles of ALARA. COMPARISON STUDY: 04/20/2018 FINDINGS: Minimal dependent atelectasis. Small superimposed parenchymal infiltrate right base. There has been interval cholecystectomy. Along the cholecystectomy tract and/or trocar tract is a 5 x 1 cm slightly complex fluid pocket resembling a small linear collection and/or abscess. This extends to the gallbladder fossa region. A major drainable abscess or collection is not appreciated. This appears to extend a linear fashion to the skin surface along the same line as a prior cholecystostomy catheter. Bowel pattern is considered nonobstructive. Bladder is midline. There is a rectal fecal impaction. 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 IMPRESSION: 1. Interval cholecystectomy. 2. 5 x 1 cm linear collection extending to the skin surface from the gallbladder fossa region. 3. This appear to represent postprocedural abscess or collection and again is aligned along a prior cholecystostomy catheter and/or trocar catheter line. 4. It is too small for percutaneous drainage. 5. Rectal fecal impaction. 6. No additional acute abnormality of the abdomen or pelvis. 7. Small parenchymal infiltrate right base. The above report was generated using voice recognition software. It may contain grammatical, syntax or spelling errors. Electronically signed by: Hi Ospina M.D. 11/30/2018 6:58 PM Blood Pressure Blood Pressure Findings: Normal blood pressure Blood Pressure Disposition: did not require urgent referral MDM Narrative This patient comes in as described above. He was placed in room B7. [facility] having drainage from a previous gallbladder drain site. On my exam, he has purulent drainage from the site. Culture was obtained. He apparently an ultrasound today which was unremarkable. He is afebrile here. The pulse was sent and he is a DNR. IV access established is given fluid bolus. Full sepsis work-up was done and I also ordered a CAT scan of the abdomen. His blood pressure did respond to some fluids his lactic acid is not elevated. His white count is mildly elevated. He was given Zosyn 4.5 g IV. The rest of his blood work is unremarkable for any acute issues. His CAT scan shows some purulent drainage along the tract but there is too small for drainage. I did discuss the case with Dr. Padilla our surgeon who recommended we discussed the case with the surgeon in [place] since that is where they did the surgery. I called him and discussed the case. I read the CT report to him. He told me that there is no reason to send him to [place] as there is no surgical indication at this point but would recommend keeping him here on IV antibiotics. I did call consult Dr. Palacios, who will see the patient in the emergency department. Impression & Plan Post-operative infection, Weakness, Abscess, Anticoagulant long-term use The scribe's documentation has been prepared under my direction and personally reviewed by me in its entirety. I confirm that the note above accurately reflects all work, treatment, procedures, and medical decision making performed by me.
[2018-11-30 18:13] LABS: Basophils # (auto) 0.03 K/uL (0-0.2); Basophils % (auto) 0.3 %; Eosinophils # (auto) 0.29 K/uL (0-0.5); Eosinophils % (auto) 2.5 %; Hematocrit (blood only) 38.1 % (42-52); Hemoglobin 12.3 g/dL (14.0-18.0); Immature Granulocytes # (auto) 0.02 K/uL (0.00-0.02); Immature Granulocytes % (auto) 0.2 %; Lymphocytes # (auto) 2.69 K/uL (1.2-3.4); Lymphocytes % (auto) 22.9 %; Mean Corpuscular Hgb Conc 32.3 g/dL (32-36); Mean Corpuscular Volume 84.9 fL (80-100); Mean Platelet Volume 10.5 fL (7.4-10.4); Monocytes # (auto) 1.02 K/uL (0.11-0.59); Monocytes % (auto) 8.7 %; Neutrophils # (auto) 7.69 K/uL (1.4-6.5); Neutrophils % (auto) 65.4 %; Platelet Count 226 K/uL (130-400); RDW Coefficient of Variation 17.8 % (11.5-14.5); RDW Standard Deviation 55.1 fL (36.4-46.3); Red Blood Count 4.49 M/uL (4.7-6.1); White Blood Count 11.74 K/uL (4.8-10.8)
[2018-11-30 18:33] LABS: Albumin Globulin Ratio 0.5 (0.9-2); Albumin Level 2.8 gm/dl (3.4-5.0); BUN Creatinine Ratio 32.6 (10-20); Bilirubin,Total 0.4 mg/dl (0.2-1); Creatinine Clr Calc Pharmacy 49.4 ml/min; Est GFR (African American) 61.1; Est GFR (Non-African American) 52.8; Globulin 5.3 gm/dl (2.5-4.0); Potassium 3.7 mmol/L (3.5-5.1); Total Protein 8.1 gm/dl (6.4-8.2)
[2018-11-30] MEDS ORDERED: IOVERSOL 100ml IV PRN (18:43)
--- NOTE | 2018-11-30 19:00 | CT Scan Report ---
CT abd pelvis IV con only CT DOSE: 1648.87 mGy.cm HISTORY: Postoperative evaluation eval for abcess, s/p GB drain removal TECHNIQUE: Multiaxial CT images of the abdomen and pelvis were performed following the use of intrave nous contrast. A dose lowering technique was utilized adhering to the principles of ALARA. COMPARISON STUDY: 04/20/2018 FINDINGS: Minimal dependent atelectasis. Small superimposed parenchymal infiltrate right base. There has been interval cholecystectomy. Along the cholecystectomy tract and/or trocar tract is a 5 x 1 cm slightly complex fluid pocket resem nabil a small linear collection and/or abscess. This extends to the gallbladder fossa region. A major drainable abscess or collection is not appreciated. This appears to extend a linear fashion t o the skin surface along the same line as a prior cholecystostomy catheter. Bowel pattern is considered nonobstructive. Bladder is midline. There is a rectal fecal impaction. Pr eviously described findings of pagetoid change of the bony pelvis appears similar. IMPRESSION: 1. Interval cholecystectomy. 2. 5 x 1 cm linear collection extending to the skin surface from the gallbladder fossa region. 3. This appear to represent postprocedural abscess or collection and again is aligned along a prior c holecystostomy catheter and/or trocar catheter line. 4. It is too small for percutaneous drainage. 5. Rectal fecal impaction. 6. No additional acute abnormality of the abdomen or pelvis. 7. Small parenchymal infiltrate right base. The above report was generated using voice recognition software. It may contain grammatical, syntax or spelling errors. Electronically signed by: Hi Ospina M.D. 11/30/2018 6:58 PM
[2018-11-30 19:29] LABS: INR 1.2 (0.9-1.1); Partial Thromboplastin Ratio 1.5; Partial Thromboplastin Time 39.6 Seconds (21.0-31.0); Prothrombin Time 12.4 Seconds (9.0-12.0)
[2018-11-30] MEDS ORDERED: POLYETHYLENE (MIRALAX) 17 GM PACK PO PRN (22:29)
[2018-11-30] MEDS ORDERED: ONDANSETRON INJ 2 MG/ML 2 ML VIAL IV PRN (22:29)
[2018-11-30] MEDS ORDERED: PIPERACILLIN/TAZOBACTAM 4.5 GM in DEXTROSE 5% 100 ML IV SCH (22:29)
[2018-11-30] MEDS ORDERED: NITROGLYCERIN SL 0.4 MG/TAB TAB SL PRN (22:29)
[2018-11-30] MEDS ORDERED: ACETAMINOPHEN 500 MG TAB PO PRN (22:29)
[2018-11-30] MEDS ORDERED: VANCOMYCIN CONSULT ACTIVE PRN (22:29)
[2018-11-30] MEDS ORDERED: VANCOMYCIN HCL 1,000 MG in SODIUM CHLORIDE 0.9% 250 ML IV SCH (22:29)
[2018-11-30] MEDS ORDERED: ACETAMINOPHEN 325 MG TAB PO PRN (22:29)
[2018-11-30] MEDS: SODIUM CHLORIDE 0.9% 1000ML 1,000 ML IV SCH (22:30)
[2018-11-30] MEDS ORDERED: VANCOMYCIN HCL 2,000 MG in SODIUM CHLORIDE 0.9% 500 ML IV SCH (23:00)
[2018-11-30] MEDS: INSULIN ASPART 100 UNITS/ML 3 ML PEN SC SCH (23:14)
--- NOTE | 2018-11-30 23:37 | History and Physical Report ---
DATE OF ADMISSION: 11/30/2018 CHIEF COMPLAINT: Drainage from the prior cholecystostomy cath site. HISTORY OF PRESENT ILLNESS: This is an 88-year-old male who was currently at [facility], at baseline had some confusion with past medical history significant for CAD status post stents x3 to the LAD, chronic systolic congestive heart failure, paroxysmal atrial fibrillation, hypertension, depression, history of CVA, nonambulatory status, cholecystitis, status post percutaneous drain in 10/2017 and drain was taken out recently on 11/15/2018 at [facility] as there was no drainage coming from it, was brought in today because since yesterday the prior cholecystostomy cath site started to drain. As per the [facility] nursing staff, the patient is generally at baseline confused, but he is pleasant and does not ambulate. He is incontinent. He is on diapers. He is on regular diet with thin liquids, but last few days he was agitated. After the tube taken out the site was closed, but yesterday the site started to open up and some drainage started to come out and some edema and swelling around the area, so they called [facility] and they were advised to come to the ER. So, the patient was brought in here. His blood pressure is somewhat on the lower side, but lactic acid is normal. White count is 11,000. Rest of the labs are okay, but the CAT scan showing some abscess in the gallbladder fossa extending to the surface, but is too small for percutaneous drainage. Surgery was consulted by the ER and recommended to talk to [facility] and when the ER physician talked to the surgeon at [facility], they advised antibiotics for now based on the CAT scan findings. The patient is alert and awake, knows his name, knows he is in the hospital, cannot tell his date of . Denies any pain. Does not know anything about the tube. Denies any chest pain, cough, shortness of breath or nausea. He says he is eating okay. He says he is doing fine. He is a poor historian, could not get much history from the patient. ALLERGIES: No known drug allergies. PAST MEDICAL HISTORY: As mentioned above. PAST SURGICAL HISTORY: I and D of anorectal abscess, status post carotid endarterectomy, left total knee arthroplasty, bilateral carpal tunnel surgery, bilateral knee replacement, right hip replacement, appendectomy, cataract surgeries, left carotid artery endarterectomy with bovine patch. MEDICATIONS: Currently, the patient is on B complex tablets, potassium chloride 10 mEq p.o. daily, vitamin D 5000 units daily, Remeron 7.5 mg p.o. at bedtime, Lipitor 40 mg p.o. daily, probiotic 2 times daily, Plavix 75 mg p.o. daily, Zoloft 50 mg p.o. daily, Lasix 40 mg p.o. daily, Xarelto 50 mg p.o. daily, Lopressor 50 mg p.o. b.i.d., Senokot-S 2 tablets daily, PreserVision, multivitamins with minerals 1 capsule 2 times daily, omega fish oil 1000 mg daily, Tylenol 1000 mg p.o. q. 8 hours p.r.n., flaxseed oil 1000 mg 2 tablets twice daily. FAMILY HISTORY: Significant for sister had cancer. Brother is status post [place], hypertension. Father had [place]. Father had stroke. SOCIAL HISTORY: , currently living at [facility]. No smoking history. No alcohol use. No drug use. REVIEW OF SYSTEMS: As per HPI. Rest of the review of systems could not get review of system as the patient is a poor historian. PHYSICAL EXAMINATION: GENERAL: The patient is alert and awake, oriented to name and place. VITAL SIGNS: Temperature 36.7, pulse 67, respiratory rate 14, blood pressure 108/63, oxygen 96% on room air. HEENT: No pallor, no icterus. Pupils equal, round, and reactive to light. NECK: No JVD, no neck masses, no carotid bruits. CARDIOVASCULAR: S1, S2 heard, regular rate and rhythm, no murmur, no gallop. RESPIRATORY SYSTEM: Normal AP diameter. No accessory muscle use. No wheezing, no crackles. ABDOMEN: Soft, bowel sounds present. Prior cholecystostomy catheterization site is wet and some erythema around the site. No distention. CENTRAL NERVOUS SYSTEM: Alert and oriented x2. Nonfocal. Obeys simple commands. SKIN: Stage I-II sacral decubitus ulcer. EXTREMITIES: No edema, no erythema. LABORATORY DATA: WBC 11.7, hemoglobin 12.3, hematocrit 38.1, platelets 226. PT 12.4, INR 1.2, APTT 39.6. Sodium 143, potassium 3.7, chloride 104, bicarbonate 32, BUN 40, creatinine 1.2, serum glucose 109, lactate 1.3, calcium 9, total bilirubin 0.4, AST 29, ALT 24, alkaline phosphatase 130. Chest x-ray, low lung volumes, likely hypoventilatory bases. IMAGING: CT of abdomen and pelvis shows 0.1 cm linear collection extending to the skin surface to the gallbladder fossa region. This appeared to represent post-procedural abscess or collection and again is aligned along the prior cholecystostomy catheter and/or trocar catheter line. It is too small for percutaneous drainage. Rectal fecal impaction, small parenchymal infiltrate, right base. No additional acute abnormality of the abdomen and pelvis. ASSESSMENT AND PLAN: This is an 88-year-old male who lives at [facility] presents with drainage from prior cholecystostomy cath site. 1. Infection from the prior cholecystostomy cath site extending from the skin surface to the gallbladder fossa. It was deemed to be too small for percutaneous drainage. Surgery notified by the ER and also called and notified surgery at [facility], but [facility] recommended antibiotics for now. We will admit the patient to the hospital and observe and put on IV Zosyn, IV vancomycin. Follow the cultures. See the response and wait for further surgical opinion. Continue IV fluids. Follow the hemodynamics 2. History of chronic systolic congestive heart failure. Previous echo in 2017 showed normal ejection fraction and grade 1 diastolic congestive heart failure, on Lasix and potassium supplements which we are holding. Continue IV fluids. We will monitor for any volume overload. 3. History of diabetes, not on medications. Follow HbA1c levels. We will place on insulin sliding scale. Diabetic diet. 4. History of atrial fibrillation. Continue Lopressor with holding parameters on Xarelto. 5. History of cerebrovascular accident, bedbound on Plavix, and statin. 6. History of peripheral vascular disease, on Plavix and statin. 7. History of depression, on Remeron. Continue Zoloft. 8. History of hypertension, on Lopressor with holding parameters as blood pressure is on the lower side. 9. History of coronary artery disease status post stents. Currently asymptomatic. Continue Plavix, beta carlos and statin. 10. Sacral decubitus ulcer stage I-II. We will consult wound care. 11. Code status. DNR as per my discussion with the snf. 12. Deep venous thrombosis prophylaxis, Xarelto. 13. Disposition: Admit to Med-Surg/tele. If any change in condition of the patient, transfer to [facility] for replacement of percutaneous drainage. CINDA
[2018-11-30] MEDS: PIPERACILLIN/TAZOBACTAM 3.375 GM in DEXTROSE 5% 100 ML IV SCH (23:39)
[2018-11-30] MEDS: CEROVITE ADV FORMULA TAB PO SCH (23:41)
[2018-11-30] MEDS: METOPROLOL TARTRATE 50 MG TAB PO SCH (23:42)
[2018-11-30] MEDS: MIRTAZAPINE TAB 15 MG TAB PO SCH (23:42)
[2018-11-30] MEDS: RIVAROXABAN 15 MG TAB PO SCH (23:44)
[2018-11-30] MEDS: DOCUSATE SODIUM/SENNA 50/8.6MG TAB PO SCH (23:44)
[2018-11-30] MEDS: ATORVASTATIN 40 MG TAB PO SCH (23:44)
[2018-12-01 08:00] LABS: Basophils # (auto) 0.02 K/uL (0-0.2); Basophils % (auto) 0.2 %; Eosinophils # (auto) 0.32 K/uL (0-0.5); Eosinophils % (auto) 3.5 %; Hematocrit (blood only) 33.5 % (42-52); Hemoglobin 10.7 g/dL (14.0-18.0); Immature Granulocytes # (auto) 0.03 K/uL (0.00-0.02); Immature Granulocytes % (auto) 0.3 %; Lymphocytes # (auto) 2.44 K/uL (1.2-3.4); Lymphocytes % (auto) 26.8 %; Mean Corpuscular Hgb Conc 31.9 g/dL (32-36); Mean Corpuscular Volume 86.3 fL (80-100); Mean Platelet Volume 9.8 fL (7.4-10.4); Monocytes # (auto) 0.76 K/uL (0.11-0.59); Monocytes % (auto) 8.4 %; Neutrophils # (auto) 5.52 K/uL (1.4-6.5); Neutrophils % (auto) 60.8 %; Platelet Count 188 K/uL (130-400); RDW Coefficient of Variation 17.9 % (11.5-14.5); RDW Standard Deviation 56.6 fL (36.4-46.3); Red Blood Count 3.88 M/uL (4.7-6.1); White Blood Count 9.09 K/uL (4.8-10.8)
[2018-12-01] MEDS: CLOPIDOGREL BISULFATE 75 MG TAB PO SCH (08:19)
[2018-12-01] MEDS: CEROVITE ADV FORMULA TAB PO SCH ×2 (08:19→20:57)
[2018-12-01] MEDS: SERTRALINE HCL 50 MG TABLET PO SCH (08:19)
[2018-12-01] MEDS: CHOLECALCIFEROL 1,000 UNITS TAB PO SCH (08:19)
[2018-12-01] MEDS: VITAMIN B COMPLEX TAB PO SCH (08:19)
[2018-12-01] MEDS: LACTOBACILLUS ACIDOPHILUS (FLORANEX) TAB PO SCH ×2 (08:20→20:56)
[2018-12-01] MEDS: METOPROLOL TARTRATE 50 MG TAB PO SCH ×2 (08:20→20:57)
[2018-12-01 08:21] LABS: Estimated Average Glucose 128 mg/dl; Hemoglobin A1C 6.1 % (4.5-5.6)
[2018-12-01] MEDS: INSULIN ASPART 100 UNITS/ML 3 ML PEN SC SCH ×4 (08:29→20:59)
[2018-12-01 08:35] LABS: BUN Creatinine Ratio 28.6 (10-20); Calcium 8.6 mg/dl (8.5-10.1); Creatinine Clr Calc Pharmacy 53.6 ml/min; Est GFR (African American) 67.1; Est GFR (Non-African American) 57.9; Magnesium 2.3 mg/dl (1.8-2.4); Potassium 3.4 mmol/L (3.5-5.1)
[2018-12-01] MEDS: SODIUM CHLORIDE 0.9% 1000ML 1,000 ML IV SCH (08:42)
[2018-12-01] MEDS: DOCUSATE SODIUM/SENNA 50/8.6MG TAB PO SCH ×2 (08:42→20:58)
[2018-12-01] MEDS: PIPERACILLIN/TAZOBACTAM 3.375 GM in DEXTROSE 5% 100 ML IV SCH ×2 (08:43→15:53)
[2018-12-01] MEDS ORDERED: PROTEIN PO SCH (09:00)
--- NOTE | 2018-12-01 09:22 | Pharmacy Report ---
Pharmacy Abx Initial Consult - Date of Service December 01, 2018 - Pharmacy Dosing Scope Date of Consult: 11/30/18 Consultation requested by: Dr. Palacios Pharmacy is consulted to initiate Vancomycin and Zosyn IV dosing therapy, order appropriate labs and adjust drug dose/frequency. - Subjective The patient is a 88 year old M admitted on 11/30/18 20:51. - Objective Height: 6 ft Weight: 95.5 kg Vital Signs (Past 12hrs): Vital Signs Temp Pulse Pulse Resp BP BP Pulse Ox 12/01/18 07:20 36.5 C 62 20 102/55 L 96 12/01/18 04:19 36.5 C 55 L 18 100/63 94 11/30/18 22:29 36.6 C 67 16 120/65 95 11/30/18 22:26 64 11/30/18 21:31 68 18 94 11/30/18 21:30 66 19 117/68 96 11/30/18 21:16 65 13 11/30/18 21:15 62 117/63 Lab Results (24hrs): Laboratory Tests (24 Hours) 12/01/18 12/01/18 11/30/18 07:48 07:48 18:01 WBC 9.09 Neut # (Auto) 5.52 Creatinine 1.12 1.21 Est Cr Clr Drug Dosing 53.6 49.4 11/30/18 18:01 WBC 11.74 H Neut # (Auto) 7.69 H Creatinine Est Cr Clr Drug Dosing Micro Results: Laboratory Tests 12/01/18 04:35 Nasal Screen MRSA (PCR) Positive A 11/30/18 17:40 Gram Stain - Final Abdomen, Right Upper Quadrant Deep Wound Culture - Pending 11/30/18 17:58 Aerobic Blood Culture - Pending Blood Anaerobic Blood Culture - Pending 11/30/18 18:01 Aerobic Blood Culture - Pending Blood Anaerobic Blood Culture - Pending - Risk Factors for Resistance * Resident in a detention or extended-care facility - Assessment & Plan Assessment 88 year old M from [facility] with PMH of DM and cholecystitis s/p perc drain which was recent removed on 11/15/18 at [facility] [address] site recently started to drain, small abscess noted Patient does have a history of infection from this site, at different times growing E. coli, P. mirabilis, and M. morganii MRSA nasal swab was positive Renal function is near baseline Plan IV Vancomycin and Zosyn for treatment of intraabdominal infection Vancomycin IV * Estimated PK Parameters: Vd 0.7 L/kg, Rubio 0.049 hr-1, t1/2 ~14 hrs * Loading dose: 2000 mg (~21 mg/kg) * Maintenance dose: 1500 mg IV (~16 mg/kg) every 16 hours * Goal trough level for IAI: 15 to 20 mcg/mL * Trough level ordered for 12/02/18 at 2330 Piperacillin/tazobactam * 4.5 g bolus administered over 30 minutes, then 3.375 g IV extended infusion every 8 hours for CrCl greater than 20 mL/min Pharmacy will continue to follow and will adjust dose/frequency as necessary. Thank you.
--- NOTE | 2018-12-01 11:54 | Surgery Consultation ---
Date of Consultation December 01, 2018 Assessment & Plan (1) Post-operative infection: s/p lap cholestectomy at Outside hospital, now with port/drain site infection. Per our radiologist, intramuscular collection not amenable to percutaneous drainage. no sepsis, clinically stable continue abx, may transition to oral no surgical intervention at this time if worsens, may need repeat imaging and percutaneous aspiration/drain placement should follow up with operating surgeons for further management surgery will follow while in house Present on Admission?: Yes History of Present Illness Attending Physician: Karly Lopez MD History of Present Illness 88 y/o male with mult medical problems s/p lap cholecystectomy at [facility] in early/mid November. Question of drain/perc cholecystostomy tube at some point, admitted with infection at drain/port site. Poor historian, denies pain. on Abx, nasal swab with MRSA. afebrile, no complaints Allergies Allergy/AdvReac Type Severity Reaction Status Date / Time No Known Allergies Allergy Verified 11/30/18 19:27 Home Medications Home Medications Medication Instructions Recorded Confirmed Type 2 Maycol/Cc Supplement 60 ml PO QID 11/30/18 11/30/18 History Liquid Protein Supp 30 ml PO DAILY 11/30/18 11/30/18 History acetaminophen [Tylenol Extra 1,000 mg PO Q8 PRN 11/30/18 11/30/18 History Strength] acetaminophen [Tylenol] 650 mg PO Q4 PRN 11/30/18 11/30/18 History atorvastatin 40 mg PO HS 11/30/18 11/30/18 History cholecalciferol (vitamin D3) 5,000 unit PO DAILY 11/30/18 11/30/18 History [Vitamin D3] clopidogrel [Plavix] 75 mg PO DAILY 11/30/18 11/30/18 History flaxseed oil 2,000 mg PO BID 11/30/18 11/30/18 History furosemide [Lasix] 40 mg PO DAILY 11/30/18 11/30/18 History lactobacillus combination no.4 0 mmu cells PO BID 11/30/18 11/30/18 History [Probiotic] metoprolol tartrate 50 mg PO BID 11/30/18 11/30/18 History mirtazapine [Remeron] 7.5 mg PO HS 11/30/18 11/30/18 History omega 5-eek-qyr-fish oil [Fish Oil] 1 cap PO DAILY 11/30/18 11/30/18 History potassium chloride 10 meq PO DAILY 11/30/18 11/30/18 History rivaroxaban [Xarelto] 15 mg PO PM 11/30/18 11/30/18 History sennosides-docusate sodium 1 tab PO BID 11/30/18 11/30/18 History [Senna-S] sertraline 50 mg PO DAILY 11/30/18 11/30/18 History vit C,X-St-hyugz-lutein-zeaxan 1 tab PO AMHS 11/30/18 11/30/18 History [PreserVision AREDS-2] vitamin B complex 1 tab PO DAILY 11/30/18 11/30/18 History Patient History Medical History Hypertension (Chronic) Weakness CAD (coronary artery disease) (Chronic) "s/p stent x 3 LAD - 09/28/17 [facility]" Dislocated hip (Resolved) Dislocation of internal right hip prosthesis (Resolved) Surgical History History of endarterectomy "2001 - Dr Mijares - [facility] Left carotid endarterectomy with vein patch " Family History Other Family history non-contributory Social History Preferred Language: Barbadian Communication Ability: Impaired Clothing Consultant Required: No Beliefs That Will Affect Care: None Current Living Situation: Long Term Other Information That Helps Us Care for You: No Feels Safe at Home: Yes Safety Concerns: Feels Safe At This Time Smoking Status: Never smoker Do You Dip or Chew Tobacco: No Hx Alcohol Use: No Hx Substance Use: No Review of Systems Review of Systems: All systems reviewed & are unremarkable except as noted in HPI & below Physical Exam Constitutional: WD/WN, vitals as above Respiratory: normal respiratory effort, lungs clear to auscultation Cardiovascular: Rate/Rhythm: regular rhythm and + bradycardic Gastrointestinal (Abdomen): port sites healing well, nt. Dressing removed from cholecystostomy tube site, purulent drainage expressable. No surrounding cellulitis. Skin: no rashes, warm and dry Results & Data Vital Signs (Past 12 Hours) Vital Signs Temp Pulse Resp BP BP Pulse Ox 12/01/18 11:08 36.4 C L 54 L 20 96/59 L 97 12/01/18 07:20 36.5 C 62 20 102/55 L 96 12/01/18 04:19 36.5 C 55 L 18 100/63 94 Laboratory Results Laboratory Results - last 24 hr 11/30/18 11/30/18 11/30/18 18:01 18:01 18:01 WBC 11.74 H RBC 4.49 L Hgb 12.3 L Hct 38.1 L MCV 84.9 MCH 27.4 MCHC 32.3 RDW Std Deviation 55.1 H RDW Coeff of [place] 17.8 H Plt Count 226 MPV 10.5 H Immature Gran % (Auto) 0.2 Neut % (Auto) 65.4 Lymph % (Auto) 22.9 [place] % (Auto) 8.7 Eos % (Auto) 2.5 Baso % (Auto) 0.3 Immature Gran # (Auto) 0.02 Neut # (Auto) 7.69 H Lymph # (Auto) 2.69 [place] # (Auto) 1.02 H Eos # (Auto) 0.29 Baso # (Auto) 0.03 PT Cancelled INR Cancelled APTT Cancelled PTT Ratio Cancelled Sodium 143 Potassium 3.7 Chloride 104 Carbon Dioxide 32 Anion Gap 7.0 BUN 40 H Creatinine 1.21 Est Cr Clr Drug Dosing 49.4 Est GFR ( Amer) 61.1 Est GFR (Non-Af Amer) 52.8 BUN/Creatinine Ratio 32.6 H Glucose 109 H POC Glucose Estimat Average Glucose Hemoglobin A1c Lactate Calcium 9.0 Magnesium Total Bilirubin 0.4 AST 29 ALT 24 Alkaline Phosphatase 130 H Total Protein 8.1 Albumin 2.8 L Globulin 5.3 H Albumin/Globulin Ratio 0.5 L Specimen Hemolysis Nasal Screen MRSA (PCR) 11/30/18 11/30/18 11/30/18 18:01 18:54 23:05 WBC RBC Hgb Hct MCV MCH MCHC RDW Std Deviation RDW Coeff of [place] Plt Count MPV Immature Gran % (Auto) Neut % (Auto) Lymph % (Auto) [place] % (Auto) Eos % (Auto) Baso % (Auto) Immature Gran # (Auto) Neut # (Auto) Lymph # (Auto) [place] # (Auto) Eos # (Auto) Baso # (Auto) PT 12.4 H INR 1.2 H APTT 39.6 H PTT Ratio 1.5 Sodium Potassium Chloride Carbon Dioxide Anion Gap BUN Creatinine Est Cr Clr Drug Dosing Est GFR ( Amer) Est GFR (Non-Af Amer) BUN/Creatinine Ratio Glucose POC Glucose 120 H Estimat Average Glucose Hemoglobin A1c Lactate 1.3 Calcium Magnesium Total Bilirubin AST ALT Alkaline Phosphatase Total Protein Albumin Globulin Albumin/Globulin Ratio Specimen Hemolysis Nasal Screen MRSA (PCR) 12/01/18 12/01/18 12/01/18 04:35 07:37 07:48 WBC 9.09 RBC 3.88 L Hgb 10.7 L Hct 33.5 L MCV 86.3 MCH 27.6 MCHC 31.9 L RDW Std Deviation 56.6 H RDW Coeff of [place] 17.9 H Plt Count 188 MPV 9.8 Immature Gran % (Auto) 0.3 Neut % (Auto) 60.8 Lymph % (Auto) 26.8 [place] % (Auto) 8.4 Eos % (Auto) 3.5 Baso % (Auto) 0.2 Immature Gran # (Auto) 0.03 H Neut # (Auto) 5.52 Lymph # (Auto) 2.44 [place] # (Auto) 0.76 H Eos # (Auto) 0.32 Baso # (Auto) 0.02 PT INR APTT PTT Ratio Sodium Potassium Chloride Carbon Dioxide Anion Gap BUN Creatinine Est Cr Clr Drug Dosing Est GFR ( Amer) Est GFR (Non-Af Amer) BUN/Creatinine Ratio Glucose POC Glucose 106 H Estimat Average Glucose Hemoglobin A1c Lactate Calcium Magnesium Total Bilirubin AST ALT Alkaline Phosphatase Total Protein Albumin Globulin Albumin/Globulin Ratio Specimen Hemolysis Nasal Screen MRSA (PCR) Positive A 12/01/18 12/01/18 12/01/18 07:48 07:48 11:32 WBC RBC Hgb Hct MCV MCH MCHC RDW Std Deviation RDW Coeff of [place] Plt Count MPV Immature Gran % (Auto) Neut % (Auto) Lymph % (Auto) [place] % (Auto) Eos % (Auto) Baso % (Auto) Immature Gran # (Auto) Neut # (Auto) Lymph # (Auto) [place] # (Auto) Eos # (Auto) Baso # (Auto) PT INR APTT PTT Ratio Sodium 143 Potassium 3.4 L Chloride 106 Carbon Dioxide 31 Anion Gap 6.0 BUN 32 H Creatinine 1.12 Est Cr Clr Drug Dosing 53.6 Est GFR ( Amer) 67.1 Est GFR (Non-Af Amer) 57.9 BUN/Creatinine Ratio 28.6 H Glucose 81 POC Glucose 97 Estimat Average Glucose 128 Hemoglobin A1c 6.1 H Lactate Calcium 8.6 Magnesium 2.3 Total Bilirubin AST ALT Alkaline Phosphatase Total Protein Albumin Globulin Albumin/Globulin Ratio Specimen Hemolysis Nasal Screen MRSA (PCR) Diagnostic Findings ADDENDUM Potential subsequent history indicates the possibility that there may not have been cholecystectomy despite initial clinical history. Regardless, the gallbladder is either absent or completely scarred down and therefore inactive. Electronically signed by: Hi Ospina M.D. 11/30/2018 8:[address] abd pelvis IV con only CT DOSE: 1648.87 mGy.cm HISTORY: Postoperative evaluation eval for abcess, s/p GB drain removal TECHNIQUE: Multiaxial CT images of the abdomen and pelvis were performed following the use of intravenous contrast. A dose lowering technique was utilized adhering to the principles of ALARA. COMPARISON STUDY: 04/20/2018 FINDINGS: Minimal dependent atelectasis. Small superimposed parenchymal infiltrate right base. There has been interval cholecystectomy. Along the cholecystectomy tract and/or trocar tract is a 5 x 1 cm slightly complex fluid pocket resembling a small linear collection and/or abscess. This extends to the gallbladder fossa region. A major drainable abscess or collection is not appreciated. This appears to extend a linear fashion to the skin surface along the same line as a prior cholecystostomy catheter. Bowel pattern is considered nonobstructive. Bladder is midline. There is a rectal fecal impaction. 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 IMPRESSION: 1. Interval cholecystectomy. 2. 5 x 1 cm linear collection extending to the skin surface from the gallbladder fossa region. 3. This appear to represent postprocedural abscess or collection and again is aligned along a prior cholecystostomy catheter and/or trocar catheter line. 4. It is too small for percutaneous drainage. 5. Rectal fecal impaction. 6. No additional acute abnormality of the abdomen or pelvis. 7. Small parenchymal infiltrate right base. (1) Post-operative infection Encounter type: initial encounter Postoperative infection type: deep incisional surgical site Qualified Code(s): T81.42XA - Infection following a procedure, deep incisional surgical site, initial encounter
[2018-12-01] MEDS: VANCOMYCIN HCL 1,500 MG in SODIUM CHLORIDE 0.9% 500 ML IV SCH (15:54)
--- NOTE | 2018-12-01 17:52 | Hospitalist Progress Note ---
Date of Service December 01, 2018 Assessment & Plan (1) Post-operative infection: . 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 Currently it freely draining, Patient's abdomen in benign recommends continue antibiotics If patient becomes septic, worsening of abdominal pain which will require cholecystostomy tube replacement Patient will need to be transferred to [facility] and follow-up with prior surgical team (4) Gram-positive bacteremia: From the infected enterocutaneous fistula/cholecystostomy site Continue with IV vancomycin repeat blood culture ordered ID eval requested (5) Deep postoperative wound infection: Cholecystostomy site growing gram-negative bacilli Enterocutaneous fistula site draining pus drainage-no surgical indication per Dr. Padilla continue on Zosyn ID eval CODE STATUS: DNR/DNI disposition: [facility] a [facility], plan is to return back to [facility] when medically stable Subjective Patient denies of any pain or discomfort, remains afebrile, vitals stable tolerating diet well, no nausea vomiting Alert and awake, denies of any pain or discomfort in the right upper quadrant Physical Exam Physical Exam: GENERAL: Elderly male no sign of distress HEENT: Sclera nonicteric, pink-purple bilateral equal reactive to light extraocular muscle intact Normal oral mucosa, neck: No JVD, no thyromegaly, trachea midline Lungs: Clear to auscultate, no wheeze or rales Cardiovascular: Regular S1 and S2, no murmur or gallop, no JVD, no lower extremity edema Abdomen: Right upper quadrant enterocutaneous fistula, drainage present abdomen nontender, bowel sounds active r Extremities: No rash or deformity, normal joint, Neuro: No focal neurological deficit, no dysarthria, no facial droop Results & Data Vital Signs (Past 12 Hours) Vital Signs Temp Pulse Resp BP BP Pulse Ox 12/01/18 14:56 36.5 C 54 L 20 108/66 95 12/01/18 11:08 36.4 C L 54 L 20 96/59 L 97 12/01/18 07:20 36.5 C 62 20 102/55 L 96 (1) Post-operative infection Encounter type: initial encounter Postoperative infection type: deep incisional surgical site Qualified Code(s): T81.42XA - Infection following a procedure, deep incisional surgical site, initial encounter
[2018-12-01] MEDS: MIRTAZAPINE TAB 15 MG TAB PO SCH (20:56)
[2018-12-01] MEDS: RIVAROXABAN 15 MG TAB PO SCH (20:57)
[2018-12-01] MEDS: ATORVASTATIN 40 MG TAB PO SCH (20:58)
[2018-12-02] MEDS: PIPERACILLIN/TAZOBACTAM 3.375 GM in DEXTROSE 5% 100 ML IV SCH ×3 (00:19→15:41)
[2018-12-02 07:37] LABS: Creatinine Clr Calc Pharmacy 54.6 ml/min; Est GFR (African American) 68.6; Est GFR (Non-African American) 59.2
[2018-12-02] MEDS: VANCOMYCIN HCL 1,500 MG in SODIUM CHLORIDE 0.9% 500 ML IV SCH (08:11)
[2018-12-02] MEDS: LACTOBACILLUS ACIDOPHILUS (FLORANEX) TAB PO SCH ×2 (08:12→21:08)
[2018-12-02] MEDS: SERTRALINE HCL 50 MG TABLET PO SCH (08:14)
[2018-12-02] MEDS: DOCUSATE SODIUM/SENNA 50/8.6MG TAB PO SCH ×2 (08:14→21:12)
[2018-12-02] MEDS: METOPROLOL TARTRATE 50 MG TAB PO SCH ×2 (08:15→21:07)
[2018-12-02] MEDS: CEROVITE ADV FORMULA TAB PO SCH ×2 (08:15→21:08)
[2018-12-02] MEDS: CLOPIDOGREL BISULFATE 75 MG TAB PO SCH (08:15)
[2018-12-02] MEDS: CHOLECALCIFEROL 1,000 UNITS TAB PO SCH (08:15)
[2018-12-02] MEDS: VITAMIN B COMPLEX TAB PO SCH (08:16)
[2018-12-02] MEDS: INSULIN ASPART 100 UNITS/ML 3 ML PEN SC SCH ×4 (08:19→21:10)
--- NOTE | 2018-12-02 15:41 | Infectious Disease Consult ---
Date of Consultation December 02, 2018 Assessment & Plan (1) Deep postoperative wound infection: Patient with infection at site of prior cholecystostomy with cultures positive for E. coli. Positive blood culture likely represents contaminant. Current antibiotic therapy appropriate, should be able to transition to oral antibiotic such as with Augmentin in the next day or so. Will follow. (2) Gram-positive bacteremia: (3) Enterocutaneous fistula: History of Present Illness Reason for Consultation: Infected abdominal wound Attending Physician: Karly Lopez MD History of Present Illness 88-year-old male with history of coronary artery disease, hypertension, chronic follow-up heart failure, who previously underwent cholecystostomy for acute cholecystitis. Apparently recently cholecystostomy tube was dislodged, and now was removed by his surgeon at [facility]. He is now readmitted to the hospital with drainage from his tube site for several days. Has not been associated with significant fever or chills. 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 Surgery at [facility] was consulted and recommended IV antibiotics and no surgical intervention. Has been treated with Zosyn with improvement. Has one positive blood culture for coagulase-negative staph, other cultures have been negative. Allergies Allergy/AdvReac Type Severity Reaction Status Date / Time No Known Allergies Allergy Verified 11/30/18 19:27 Home Medications Home Medications Medication Instructions Recorded Confirmed Type 2 Maycol/Cc Supplement 60 ml PO QID 11/30/18 11/30/18 History Liquid Protein Supp 30 ml PO DAILY 11/30/18 11/30/18 History PreserVision AREDS-2 1 tab PO AMHS 11/30/18 11/30/18 History Probiotic 0 mmu cells PO BID 11/30/18 11/30/18 History Xarelto 15 mg PO PM 11/30/18 11/30/18 History acetaminophen [Tylenol Extra 1,000 mg PO Q8 PRN 11/30/18 11/30/18 History Strength] acetaminophen [Tylenol] 650 mg PO Q4 PRN 11/30/18 11/30/18 History atorvastatin 40 mg PO HS 11/30/18 11/30/18 History cholecalciferol (vitamin D3) 5,000 unit PO DAILY 11/30/18 11/30/18 History [Vitamin D3] clopidogrel [Plavix] 75 mg PO DAILY 11/30/18 11/30/18 History flaxseed oil 2,000 mg PO BID 11/30/18 11/30/18 History furosemide [Lasix] 40 mg PO DAILY 11/30/18 11/30/18 History metoprolol tartrate 50 mg PO BID 11/30/18 11/30/18 History mirtazapine [Remeron] 7.5 mg PO HS 11/30/18 11/30/18 History omega 4-dip-vpm-fish oil [Fish Oil] 1 cap PO DAILY 11/30/18 11/30/18 History potassium chloride 10 meq PO DAILY 11/30/18 11/30/18 History sennosides-docusate sodium 1 tab PO BID 11/30/18 11/30/18 History [Senna-S] sertraline 50 mg PO DAILY 11/30/18 11/30/18 History vitamin B complex 1 tab PO DAILY 11/30/18 11/30/18 History amoxicillin-pot clavulanate 1 tab PO BIDM 7 Days #14 tab 12/03/18 Rx Lactobacillus acidoph-L.bulgar 1 packet PO TID 14 Days #42 ea 12/04/18 Rx [Lactinex] Patient History Medical History Hypertension (Chronic) Weakness (Acute) CAD (coronary artery disease) (Chronic) "s/p stent x 3 LAD - 09/28/17 [facility] [place]" Dislocated hip (Resolved) Dislocation of internal right hip prosthesis (Resolved) Surgical History History of endarterectomy "2001 - Dr Mijares - [facility] Left carotid endarterectomy with vein patch " Family History Other Family history non-contributory Social History Preferred Language: Vietnamese Communication Ability: Impaired 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 Beliefs That Will Affect Care: None Current Living Situation: [facility] Other Information That Helps Us Care for You: No Feels Safe at Home: Yes Safety Concerns: Feels Safe At This Time Smoking Status: Never smoker Do You Dip or Chew Tobacco: No Hx Alcohol Use: No Hx Substance Use: No Review of Systems Review of Systems: All systems reviewed & are unremarkable except as noted in HPI & below Physical Exam Constitutional: WD/WN, vitals as above comfortable; no acute distress Eyes: PERRL, conjunctivae normal, anicteric sclerae ENMT: external ear and nose normal, oropharynx normal Neck: trachea midline, no thyromegaly neck nontender Respiratory: normal respiratory effort, lungs clear to auscultation normal percussion; does not use accessory muscles Cardiovascular: Rate/Rhythm: regular rate and regular rhythm Heart Sounds: normal S1 and normal S2; no gallop, no murmur and no cardiac rub Vessels: normal peripheral pulses; no JVD Gastrointestinal (Abdomen): normal bowel sounds, soft, nontender, no hepatosplenomegaly Musculoskeletal: no cyanosis or clubbing, extremities motor strength 5/5 Spine: thoracic spine normal to inspection and lumbar spine normal to inspection; no cervical spinal tenderness Skin: no rashes, warm and dry normal turgor and + wound (Cholecystostomy si te with small amount of drainage, no significant surrounding cellulitis) Neurologic: patellar DTR's 2+ bilat, sensation intact no focal motor deficits Psychiatric: A+Ox3, euthymic affect Orientation: cooperative Lymphatic: no cervical or axillary lymphadenopathy no inguinal ly mphadenopathy Results & Data Vital Signs (Past 12 Hours) Vital Signs Temp Pulse Resp BP Pulse Ox 12/02/18 14:42 36.7 C 64 20 102/61 96 12/02/18 08:22 69 108/65 12/02/18 07:23 36.7 C 59 L 20 110/58 L 98 Laboratory Results [facility] 12/02/18 06:35 Creatinine 1.10 Diagnostic Findings Microbiology 11/30/18 17:40 Abdomen, Right Upper Quadrant Gram Stain - Final 11/30/18 17:40 Abdomen, Right Upper Quadrant Deep Wound Culture - Preliminary Escherichia coli 11/30/18 17:58 Blood Aerobic Blood Culture - Preliminary No growth in Aerobic bottle after 24 hours. 11/30/18 17:58 Blood Anaerobic Blood Culture - Preliminary Coag neg staph not lugdunensis 11/30/18 18:01 Blood Aerobic Blood Culture - Preliminary No growth in Aerobic bottle after 24 hours. 11/30/18 18:01 Blood Anaerobic Blood Culture - Preliminary No growth in Anaerobic bottle after 24 hours. ADDENDUM Potential subsequent history indicates the possibility that there may not have been cholecystectomy despite initial clinical history. Regardless, the gallbladder is either absent or completely scarred down and therefore inactive. Electronically signed by: Hi Ospina M.D. 11/30/2018 8:[address] abd pelvis IV con only CT DOSE: 1648.87 mGy.cm HISTORY: Postoperative evaluation eval for abcess, s/p GB drain removal TECHNIQUE: Multiaxial CT images of the abdomen and pelvis were performed following the use of intravenous contrast. A dose lowering technique was utilized adhering to the principles of ALARA. COMPARISON STUDY: 04/20/2018 FINDINGS: Minimal dependent atelectasis. Small superimposed parenchymal infiltrate right base. There has been interval cholecystectomy. Along the cholecystectomy tract and/or trocar tract is a 5 x 1 cm slightly complex fluid pocket resembling a small linear collection and/or abscess. This extends to the gallbladder fossa region. A major drainable abscess or collection is not appreciated. This appears to extend a linear fashion to the skin surface along the same line as a prior cholecystostomy catheter. Bowel pattern is considered nonobstructive. Bladder is midline. There is a rectal fecal impaction. 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 IMPRESSION: 1. Interval cholecystectomy. 2. 5 x 1 cm linear collection extending to the skin surface from the gallbladder fossa region. 3. This appear to represent postprocedural abscess or collection and again is aligned along a prior cholecystostomy catheter and/or trocar catheter line. 4. It is too small for percutaneous drainage. 5. Rectal fecal impaction. 6. No additional acute abnormality of the abdomen or pelvis. 7. Small parenchymal infiltrate right base. The above report was generated using voice recognition software. It may contain grammatical, syntax or spelling errors. Electronically signed by: Hi Ospina M.D. 11/30/2018 6:58 PM Dictated: 11/30/181851 Transcribed: 11/30/181851
--- NOTE | 2018-12-02 18:03 | Hospitalist Progress Note ---
Date of Service December 02, 2018 Assessment & Plan (1) Post-operative infection: . Cholecystostomy tube insertion site after tube was dislodged inadvertently wound culture at enterocutenous fistula site growing E coli kaye sensitive on Iv Zosyn ID follwoing plan to transition to PO Augmentin in next 1-2 days if remains clinically stable , (2) Cholecystostomy tube dysfunction: Patient had a cholecystostomy tube drainage placed at [place] Tube got dislodged few weeks back Now presents to ER with skin wound opening at prior tube site draining pus wound culture growing gram-negative bacilli/e coli Continue broad-spectrum antibiotic as outlined (3) Enterocutaneous fistula: Appreciate input from surgery Dr. 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 Currently it freely draining, Patient's abdomen in benign recommends continue antibiotics If patient becomes septic, worsening of abdominal pain which will require cholecystostomy tube replacement Patient will need to be transferred to [place] and follow-up with prior surgical team (4) Gram-positive bacteremia: From the infected enterocutaneous fistula/cholecystostomy site Continue with IV vancomycin repeat blood culture ordered-no growth so far ID eval requested (5) Deep postoperative wound infection: Cholecystostomy site growing gram-negative bacilli/e coli Enterocutaneous fistula site draining pus drainage-no surgical indication per Dr. Padilla continue on Zosyn ID eval CODE STATUS: DNR/DNI disposition: Patient is a resident at skilled nursing, plan is to return back to skilled nursing when medically stable Subjective no complain of abdominal pain no nausea or vomiting , tolerating diet well afebrile awake and alert , oriented conversing appropriately Results & Data Vital Signs (Past 12 Hours) Vital Signs Temp Pulse Resp BP Pulse Ox 12/02/18 14:42 36.7 C 64 20 102/61 96 12/02/18 08:22 69 108/65 12/02/18 07:23 36.7 C 59 L 20 110/58 L 98 (1) Post-operative infection Encounter type: initial encounter Postoperative infection type: deep incisional surgical site Qualified Code(s): T81.42XA - Infection following a procedure, deep incisional surgical site, initial encounter
[2018-12-02] MEDS: MIRTAZAPINE TAB 15 MG TAB PO SCH (21:07)
[2018-12-02] MEDS: RIVAROXABAN 15 MG TAB PO SCH (21:09)
[2018-12-02] MEDS: ATORVASTATIN 40 MG TAB PO SCH (21:11)
[2018-12-02] MEDS ORDERED: VANCOMYCIN TROUGH ONE (23:30)
[2018-12-03] MEDS: VANCOMYCIN HCL 1,500 MG in SODIUM CHLORIDE 0.9% 500 ML IV SCH (01:14)
[2018-12-03] MEDS: PIPERACILLIN/TAZOBACTAM 3.375 GM in DEXTROSE 5% 100 ML IV SCH ×2 (01:14→07:56)
[2018-12-03 07:16] LABS: Creatinine Clr Calc Pharmacy 60.6 ml/min; Est GFR (African American) 77.9; Est GFR (Non-African American) 67.2
[2018-12-03] MEDS: CLOPIDOGREL BISULFATE 75 MG TAB PO SCH (07:56)
[2018-12-03] MEDS: CHOLECALCIFEROL 1,000 UNITS TAB PO SCH (07:56)
[2018-12-03] MEDS: CEROVITE ADV FORMULA TAB PO SCH ×2 (07:56→20:53)
[2018-12-03] MEDS: DOCUSATE SODIUM/SENNA 50/8.6MG TAB PO SCH ×2 (07:57→20:58)
[2018-12-03] MEDS: SERTRALINE HCL 50 MG TABLET PO SCH (07:59)
[2018-12-03] MEDS: VITAMIN B COMPLEX TAB PO SCH (07:59)
[2018-12-03] MEDS: LACTOBACILLUS ACIDOPHILUS (FLORANEX) TAB PO SCH ×2 (08:00→20:53)
[2018-12-03] MEDS: METOPROLOL TARTRATE 50 MG TAB PO SCH ×2 (08:00→20:50)
[2018-12-03] MEDS: INSULIN ASPART 100 UNITS/ML 3 ML PEN SC SCH ×4 (08:01→20:59)
--- NOTE | 2018-12-03 09:34 | Surgery Progress Note ---
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 Currently it freely draining, Patient's abdomen in benign recommends continue antibiotics If patient becomes septic, worsening of abdominal pain which will require cholecystostomy tube replacement Patient will need to be transferred to [place] and follow-up with prior surgical team continue treatment, Physical Exam Constitutional: WD/WN, vitals as above Neck: trachea midline, no thyromegaly Respiratory: normal respiratory effort, lungs clear to auscultation Cardiovascular: RRR, no murmur, no edema Gastrointestinal (Abdomen): Percussion/Palpation: abdomen soft NT, ND, no significant drainage at RUQ wound, no redness, BS + Neurologic: awake Psychiatric: Orientation: alert Results & Data Vital Signs (Past 12 Hours) Vital Signs Temp Pulse Resp BP BP Pulse Ox 12/03/18 07:17 36.6 C 73 16 97/66 L 98 12/02/18 23:09 36.7 C 75 16 111/67 95 Laboratory Results Abnormal lab results 12/02/18 12/02/18 Range/Units 11:30 20:06 POC Glucose 106 H 136 H (70-99)
--- NOTE | 2018-12-03 13:59 | Pharmacy Report ---
Pharmacy Abx Dose Short Note - Date of Service December 03, 2018 - Assessment & Plan Laboratory Tests 12/02/18 23:12 Vancomycin Trough 20.5 Assessment 88 year old M receiving Vancomycin 1500mg IV Q16H for treatment of infected cholecystostomy site. * Growing Gram-positive bacteremia. Repeat blood cultures from 12/01 show no growth x2. Day #4 of antimicrobial therapy. Plan Vancomycin * Trough level of 20.5 mcg/mL is therapeutic, but this level was drawn before the 4th dose so will back off slightly * Change to 1250 mg IV every 16 hours * Patient's estimated t1/2 is 12.6 hours * Goal trough level for SST: 15 to 20 mcg/mL * Trough level ordered for: 12/04/18 at 2330 Pharmacy will continue to follow and will adjust dose/frequency as necessary. Thank you.
[2018-12-03] MEDS ORDERED: VANCOMYCIN HCL 1,250 MG in SODIUM CHLORIDE 0.9% 250 ML IV SCH (16:00)
--- NOTE | 2018-12-03 16:26 | Hospitalist Progress Note ---
Date of Service December 03, 2018 Assessment & Plan (1) Post-operative infection: . History of acute cholecystitis, status post cholecystostomy tube placed at [facility] Developed infection at cholecystostomy tube insertion siteafter tube was dislodged inadvertently wound culture at enterocutenous fistula site growing E coli kaye sensitive Treated with IV Zosyn ID follwoing Patient remains clinically stable, no evidence of sepsis or infection Antibiotic changed to p.o. Augmentin, needs total 10 days of course (2) Cholecystostomy tube dysfunction: Patient had a cholecystostomy tube drainage placed at [place] Tube got dislodged few weeks back Presented ER with skin wound opening at prior tube site draining pus wound culture growing gram-negative bacilli/e coli Continue broad-spectrum antibiotic as outlined (3) Enterocutaneous fistula: Appreciate input from surgery Dr. 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 Currently it freely draining, Patient's abdomen in benign recommends continue antibiotics Plan to [facility] with oral Augmentin for 7 more days (4) Gram-positive bacteremia: From the infected enterocutaneous fistula/cholecystostomy site Continue with IV vancomycin repeat blood culture ordered-no growth so far ID eval appreciated Will DC IV vancomycin antibiotic changed to p.o. Augmentin (5) Deep postoperative wound infection: Cholecystostomy site growing gram-negative bacilli/e coli Enterocutaneous fistula site draining pus drainage-no surgical indication per Dr. Padilla Antibiotic changed to p.o. Augmentin CODE STATUS: DNR/DNI disposition: [facility] a [facility], plan is to return back to prison tomorrow Subjective Patient has been very uncooperative with nursing, trying to get up bed, Yelling to get out of the hospital No complaint of right upper quadrant pain, no active drainage noted on the enterocutaneous fistula Fever or chills, tolerating diet well Physical Exam Constitutional: WD/WN, vitals as above no acute distress Eyes: PERRL, conjunctivae normal, anicteric sclerae ENMT: external ear and nose normal, oropharynx normal Neck: trachea midline, no thyromegaly Respiratory: normal respiratory effort, lungs clear to auscultation Cardiovascular: RRR, no murmur, no edema Gastrointestinal (Abdomen): Inspection/Auscultation: abdomen not distended Percussion/Palpation: abdomen soft; abdomen nontender Right upper quadrant enterocutaneous fistula present, minimum drainage, no surrounding erythema or swelling Musculoskeletal: no cyanosis or clubbing, extremities motor strength 5/5 Neurologic: PERRL, EOMI, accommodation nl, no face palsy, no dysarthria Psychiatric: Orientation: alert (Oriented to place and person) Mood: + irritable mood Judgement: + poor judgement Results & Data Vital Signs (Past 12 Hours) Vital Signs Temp Pulse Resp BP Pulse Ox 12/03/18 07:17 36.6 C 73 16 97/66 L 98 (1) Post-operative infection Encounter type: initial encounter Postoperative infection type: deep incisional surgical site Qualified Code(s): T81.42XA - Infection following a procedure, deep incisional surgical site, initial encounter
[2018-12-03] MEDS: AMOXICILLIN/CLAVULANATE 875 MG TAB PO SCH (18:13)
[2018-12-03] MEDS: ATORVASTATIN 40 MG TAB PO SCH (20:49)
[2018-12-03] MEDS: MIRTAZAPINE TAB 15 MG TAB PO SCH (20:49)
[2018-12-03] MEDS: RIVAROXABAN 15 MG TAB PO SCH (20:52)
[2018-12-04] MEDS: VITAMIN B COMPLEX TAB PO SCH (07:50)
[2018-12-04] MEDS: AMOXICILLIN/CLAVULANATE 875 MG TAB PO SCH (07:50)
[2018-12-04] MEDS: SERTRALINE HCL 50 MG TABLET PO SCH (07:50)
[2018-12-04] MEDS: LACTOBACILLUS ACIDOPHILUS (FLORANEX) TAB PO SCH (07:51)
[2018-12-04] MEDS: CHOLECALCIFEROL 1,000 UNITS TAB PO SCH (07:51)
[2018-12-04] MEDS: CEROVITE ADV FORMULA TAB PO SCH (07:51)
[2018-12-04] MEDS: CLOPIDOGREL BISULFATE 75 MG TAB PO SCH (07:51)
[2018-12-04] MEDS: METOPROLOL TARTRATE 50 MG TAB PO SCH (07:51)
[2018-12-04] MEDS: DOCUSATE SODIUM/SENNA 50/8.6MG TAB PO SCH (07:55)
[2018-12-04] MEDS: INSULIN ASPART 100 UNITS/ML 3 ML PEN SC SCH ×2 (08:27→11:49)
[2018-12-04 08:49] LABS: Creatinine Clr Calc Pharmacy 54.6 ml/min; Est GFR (African American) 68.6; Est GFR (Non-African American) 59.2
--- NOTE | 2018-12-04 15:51 | Surgery Progress Note ---
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 Currently it freely draining, Patient's abdomen in benign recommends continue antibiotics If patient becomes septic, worsening of abdominal pain which will require cholecystostomy tube replacement Patient will need to be transferred to [place] and follow-up with prior surgical team continue treatment, 12/04/2018 3:51 pm doing fine, will F/u Subjective Patient has been very uncooperative with nursing, trying to get up bed, Yelling to get out of the hospital No complaint of right upper quadrant pain, no active drainage noted on the enterocutaneous fistula Fever or chills, tolerating diet well Physical Exam Constitutional: WD/WN, vitals as above Neck: trachea midline, no thyromegaly Respiratory: normal respiratory effort, lungs clear to auscultation Cardiovascular: RRR, no murmur, no edema Gastrointestinal (Abdomen): Percussion/Palpation: abdomen soft Neurologic: awake Psychiatric: Orientation: alert Results & Data Vital Signs (Past 12 Hours) Vital Signs Temp Pulse Resp BP BP Pulse Ox 12/04/18 13:20 36.6 C 85 18 111/67 100/65 94 12/04/18 07:18 36.6 C 85 18 100/65 94
--- NOTE | 2018-12-04 17:06 | Discharge Summary ---
Date of Service December 04, 2018 Admission HPI Per Admitting Provider DICTATED BY: Demetrio Palacios MD DATE OF ADMISSION: 11/30/2018 CHIEF COMPLAINT: Drainage from the prior cholecystostomy cath site. HISTORY OF PRESENT ILLNESS: This is an 88-year-old male who was currently at [facility], at baseline had some confusion with past medical history significant for CAD status post stents x3 to the LAD, chronic systolic congestive heart failure, paroxysmal atrial fibrillation, hypertension, depression, history of CVA, nonambulatory status, cholecystitis, status post percutaneous drain in 10/2017 and drain was taken out recently on 11/15/2018 at [facility] as there was no drainage coming from it, was brought in today because since yesterday the prior cholecystostomy cath site started to drain. As per the [facility] nursing staff, the patient is generally at baseline confused, but he is pleasant and does not ambulate. He is incontinent. He is on diapers. He is on regular diet with thin liquids, but last few days he was agitated. After the tube taken out the site was closed, but yesterday the site started to open up and some drainage started to come out and some edema and swelling around the area, so they called [facility] and they were advised to come to the ER. So, the patient was brought in here. His blood pressure is somewhat on the lower side, but lactic acid is normal. White count is 11,000. Rest of the labs are okay, but the CAT scan showing some abscess in the gallbladder fossa extending to the surface, but is too small for percutaneous drainage. Surgery was consulted by the ER and recommended to talk to [facility] and when the ER physician talked to the surgeon at [facility], they advised antibiotics for now based on the CAT scan findings. The patient is alert and awake, knows his name, knows he is in the hospital, cannot tell his date of . Denies any pain. Does not know anything about the tube. Denies any chest pain, cough, shortness of breath or nausea. He says he is eating okay. He says he is doing fine. He is a poor historian, could not get much history from the patient. Principal Diagnosis Enterocutaneous fistula, cholecystostomy tube site infection Discharge Exam Constitutional WD/WN, vitals as above no acute distress Eyes PERRL, conjunctivae normal, anicteric sclerae ENMT external ear and nose normal, oropharynx normal Neck trachea midline, no thyromegaly Respiratory normal respiratory effort, lungs clear to auscultation Cardiovascular RRR, no murmur, no edema Gastrointestinal (Abdomen) Inspection/Auscultation: abdomen not distended Percussion/Palpation: abdomen soft; abdomen nontender Musculoskeletal no cyanosis or clubbing, extremities motor strength 5/5 Neurologic PERRL, EOMI, accommodation nl, no face palsy, no dysarthria Psychiatric Orientation: alert (Oriented to place and person) Mood: + irritable mood Judgement: + poor judgement Discharge Data Allergies Allergy/AdvReac Type Severity Reaction Status Date / Time No Known Allergies Allergy Verified 11/30/18 19:27 Consultations 11/30/18 22:29 Consult Case Management - Discharge Planning Routine 12/01/18 08:00 Consult General Surgery Routine 12/01/18 15:15 Consult Infectious Diseases Routine Ordered Studies 11/30/18 17:32 CT abd pelvis IV con only Stat Hospital Course (1) Post-operative infection: . History of acute cholecystitis, status post cholecystostomy tube placed at [facility] Developed infection at cholecystostomy tube insertion siteafter tube was dislodged inadvertently wound culture at enterocutenous fistula site growing E coli kaye sensitive Treated with IV Zosyn ID follwoing Patient remains clinically stable, no evidence of sepsis or infection Antibiotic changed to p.o. Augmentin, needs total 10 days of course (2) Cholecystostomy tube dysfunction: Patient had a cholecystostomy tube drainage placed at [facility] Tube got dislodged few weeks back Presented ER with skin wound opening at prior tube site draining pus wound culture growing gram-negative bacilli/e coli Antibiotic changed to p.o. Augmentin (3) Enterocutaneous fistula: Appreciate input from surgery Dr. 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 Currently it freely draining, Patient's abdomen in benign recommends continue antibiotics Per surgery team: In future if patient becomes septic, worsening of abdominal pain which will require cholecystostomy tube replacement Patient will need to be transferred to [facility] and follow-up with prior surgical team Stable to be transferred to intermediate with oral Augmentin for 7 more days (4) Gram-positive bacteremia: From the infected enterocutaneous fistula/cholecystostomy site Continue with IV vancomycin repeat blood culture ordered-no growth so far ID eval appreciated Antibiotic changed to p.o. Augmentin (5) Deep postoperative wound infection: Cholecystostomy site growing gram-negative bacilli/e coli Enterocutaneous fistula site draining pus drainage-no surgical indication per Dr. Padilla Antibiotic changed to p.o. Augmentin CODE STATUS: DNR/DNI disposition: Patient is transferred to intermediate today in stable condition Total Time Total Time Spent Total Time Spent (In Minutes): Approximately 35 minutes Total Time Includes: Examination of the Patient, Discharge Planning and Medication Reconciliation Discharge Plan Discharge Items Patient Disposition: Trans Resident Long-Term Care Reason For Visit: INFECTION Discharge Diagnosis: Enterocutaneous fistula, cholecystostomy tube site infection Discharge Goals: Decrease discomfort and Therapeutic intervention Activity: Resume your previous activity Non-emergency contact: Primary Care Provider Call non-emergency contact if: you have any medication questions Follow-up/Referrals: Pennie Dickens [Primary Care Provider] - Diet: Regular Addtl Provider Instructions: Follow-up with physician and Chrissie Complete antibiotic 7 more days Take lactobacillus to prevent antibiotic associated gastroenteritis for 2 weeks Prescriptions: New amoxicillin-pot clavulanate 875-125 mg Tablet 1 tab PO BIDM 7 Days Qty: 14 RF: 0 Lactinex 100 million cell granules in packet 1 packet PO TID 14 Days Qty: 42 RF: 0 Continued 2 Maycol/Cc Supplement 60 ml PO QID RF: 0 furosemide [Lasix] 40 mg Tablet 40 mg PO DAILY RF: 0 atorvastatin 40 mg Tablet 40 mg PO HS RF: 0 acetaminophen [Tylenol] 325 mg Tablet 650 mg PO Q4 PRN (Reason: FEVER>101/PAIN 1-3) RF: 0 sennosides-docusate sodium [Senna-S] 8.6-50 mg Tablet 1 tab PO BID RF: 0 potassium chloride 10 mEq Tablet Extended Release 10 meq PO DAILY RF: 0 clopidogrel [Plavix] 75 mg Tablet 75 mg PO DAILY RF: 0 acetaminophen [Tylenol Extra Strength] 500 mg Tablet 1,000 mg PO Q8 PRN (Reason: PAIN 4-10) RF: 0 flaxseed oil 1,000 mg Capsule 2,000 mg PO BID RF: 0 metoprolol tartrate 50 mg Tablet 50 mg PO BID RF: 0 vitamin B complex Tablet 1 tab PO DAILY RF: 0 mirtazapine [Remeron] 15 mg Tablet 7.5 mg PO HS RF: 0 sertraline 50 mg Tablet 50 mg PO DAILY RF: 0 cholecalciferol (vitamin D3) [Vitamin D3] 5,000 unit Tablet 5,000 unit PO DAILY RF: 0 omega 4-kbl-man-fish oil [Fish Oil] 1,000 mg (120 mg-180 mg) Capsule 1 cap PO DAILY RF: 0 Xarelto 15 mg Tablet 15 mg PO PM RF: 0 Probiotic 3 billion cell Capsule PO BID RF: 0 PreserVision AREDS-2 [id number] vl-[id number]-[id number]-mg Capsule 1 tab PO AMHS RF: 0 Liquid Protein Supp 30 ml PO DAILY RF: 0 Stand-Alone Forms: [facility] Discharge Orders: Discharge Order (Routine); Ordered 12/04/18 Ordered By: Karly Lopez Admission Data Admit Date/Time: 11/30/18 20:51 Attending Provider: Karly Lopez Admit Provider: Demetrio Palacios Primary Care Provider: Pennie Dickens Other Providers: Kameron Padilla ; Ole De La Rosa Service: Medical Other Interventions: Discharge Summary Assessment (RN) Last Done: 12/04/18 13:20 DC Date/Time DO NOT enter until pt leaves facility: 12/04/18 16:04
[2018-12-04] MEDS ORDERED: VANCOMYCIN TROUGH ONE (23:30)
== END 2018-12-04 16:04 | DRG 863 ==
LOC: ED 17:19 → 2W 20:51